=== PATIENT | male | born 1965 | race American Indian/Alaskan Native ===

== ENCOUNTER 2016-06-11 08:41 | Inpatient (IN) | payer OTHER ==
--- NOTE | 2016-06-11 13:27 | Emergency Department Report ---
ED Extremity Problem HPI - General Chief complaint: Extremity Problem,Nontraumatic Stated complaint: LEG PAIN Time Seen by Provider: 06/11/16 12:49 Source: patient Mode of arrival: Wheelchair Limitations: No Limitations - History of Present Illness Initial comments: 89-year-old male looks older than he presents comes in for complaint of pain in both legs. Complains of back pain when he coughs. Also he complains of swelling over his left anterior hip. He reports that the pain in both legs have been going on for 3-4 weeks pain in his left thigh with the swelling isn't going on for 2 weeks. He reports that the pain is constant and throbbing, reports he can't sit comfortably standing too long is painful as well. He does admit to having losing weight. He said he has not been followed by healthcare provider in a while. - Related Data Home Medications Medication Instructions Recorded Confirmed Last Taken No Known Home Medications [No 06/11/16 06/11/16 Unknown Reported Home Medications] Previous Rx's Medication Instructions Recorded Last Taken Type HYDROcodone/APAP 5-325 [[place] 1 each PO Q6H PRN #15 tablet 05/02/15 Unknown Rx 5/325] Levofloxacin [Levaquin TAB] 500 mg PO QDAY #10 tablet 05/02/15 Unknown Rx Nicotine [Habitrol] 7 mg TD QDAY #7 patch 05/02/15 Unknown Rx Allergies Allergy/AdvReac Type Severity Reaction Status Date / Time No Known Allergies Allergy Verified 06/14/15 07:26 ED Review of Systems ROS: Stated complaint: LEG PAIN Other details as noted in HPI ED Past Medical Hx - Past Medical History Hx Asthma: No Hx COPD: No - Surgical History Additional Surgical History: Dental extractions - Social History Smoking Status: Current Every Day Smoker Substance Use Type: None - Medications Home Medications: Home Medications Medication Instructions Recorded Confirmed Last Taken Type HYDROcodone/APAP 5-325 [[place] 1 each PO Q6H PRN #15 tablet 05/02/15 06/14/15 Unknown Rx 5/325] Levofloxacin [Levaquin TAB] 500 mg PO QDAY #10 tablet 05/02/15 06/14/15 Unknown Rx Nicotine [Habitrol] 7 mg TD QDAY #7 patch 05/02/15 06/14/15 Unknown Rx No Known Home Medications [No 06/11/16 06/11/16 Unknown History Reported Home Medications] ED Physical Exam - General Limitations: No Limitations ED Course Vital Signs 06/11/16 06/11/16 08:59 13:45 Temperature 98.0 F 98.3 F Pulse Rate 104 H 97 H Respiratory 22 16 Rate Blood Pressure 123/74 Blood Pressure 114/64 [Left] O2 Sat by Pulse 100 99 Oximetry ED Medical Decision Making - Lab Data Result diagrams: 06/11/16 14:31 06/11/16 13:53 - Medical Decision Making Patient been evaluated by this provider. Discussed with patient that we'll need to do a workup for his leg and lower back pain. As well as a workup on his weight loss. We ordered a CT of his abdomen and pelvis a chest x-ray to rule out tuberculosis. Ordered CBC BNP magnesium, IV fluids. Results of CBC noticed the patient was anemic H&H was 6.1 and 17.1. Therefore this provider with direction from ordered 2 units of pack red blood cells, and Benadryl IV, acetaminophen 650 mg. Patient will be admitted for CT results to give a report to did discuss with regarding giving this patient morphine 4 mg IV based on preliminary CT results. Report given to admitting provider. Critical care attestation.: If time is entered above; I have spent that time in minutes in the direct care of this critically ill patient, excluding procedure time.
[2016-06-11 14:21] LABS: Anion Gap 12 mmol/L; BUN/Creatinine Ratio 8.46; Blood Urea Nitrogen 11 mg/dL (9-20); Calcium 9.6 mg/dL (8.4-10.2); Carbon Dioxide 25 mmol/L (22-30); Chloride 90.9 mmol/L (98-107); Glucose 91 mg/dL (75-100); Potassium 3.7 mmol/L (3.6-5.0); Sodium 124 mmol/L (137-145)
--- NOTE | 2016-06-11 14:46 | XRay Report ---
CHEST XRAY, 2 VIEWS: History: Cough, evaluate for tuberculosis. Findings: There is mild diffuse interstitial coarsening. The lungs are otherwise clear but hyperexpanded. The pleural spaces are clear. The cardiac silhouette and pulmonary vasculature are within normal limits for technique. No findings to suggest primary or reactive tuberculosis. IMPRESSION: Changes consistent with COPD. No evidence for an acute process.
[2016-06-11 15:08] LABS: Red Blood Count 1.82 M/mm3 (3.65-5.03); White Blood Count 8.2 K/mm3 (4.5-11.0)
[2016-06-11 15:09] LABS: Hemoglobin 6.1 gm/dl (11.8-15.2); Mean Corpuscular HGB Conc 36 % (32-34); Mean Corpuscular Hemoglobin 34 pg (28-32); Mean Corpuscular Volume 94 fl (84-94); Platelet Count 116 K/mm3 (140-440)
[2016-06-11 15:11] LABS: Hematocrit 17.1 % (35.5-45.6)
[2016-06-11] MEDS ORDERED: NACL 0.9% 500 ML 500 ML IV ONE (15:24)
[2016-06-11] MEDS ORDERED: TYLENOL PO ONE (15:24)
[2016-06-11 15:33] LABS: Bilirubin,Urine NEG (Negative); Blood,Urine SM (Negative); Ketones,Urine NEG (Negative); Leukocyte Esterase,Urine NEG (Negative); Nitrite,Urine NEG (Negative); Protein,Urine <15 mg/dL mg/dL (Negative); Sperm,Urine 1+ /HPF (NP)
[2016-06-11] MEDS ORDERED: MORPHINE IV ONE ×2 (17:41→20:17)
[2016-06-11] MEDS ORDERED: NACL 0.9% 500 ML 500 ML ONE (17:42)
--- NOTE | 2016-06-11 17:46 | Cat Scan Report ---
FINAL REPORT EXAM: CT ABDOMEN PELVIS WO CON HISTORY: pain with weigh loss and mass on hip TECHNIQUE: CT examination of the ABDOMEN without contrast CT exanimation of the PELVIS without contrast PRIORS: 04/30/2015 FINDINGS: Slight linear scar versus atelectasis in both lower lobes. There is a lytic expansile mass in the anterior aspect of the left iliac wing extending from the acetabulum to the left iliac crest. It is marginated by discontinuous rim calcification. There is suggestion of this calcified rim circumscribed a large soft tissue mass with maximum dimension of 10.7 cm. A lytic expansile lesion is also noted in the right anterior iliac wing with suggestion of associated soft tissue mass measuring 3.8 cm. Additional multifocal lytic lesions are noted in the proximal right femur, proximal left femur, bilateral inferior pubic ramus, left pubis, right acetabulum, medial left acetabulum, medial iliac wing bilaterally, and left mid sacrum. Lytic foci are also noted in the left L3 and L5 pedicles and spinous process of L2. Lytic focus with slight expansile remodeling is noted in the posterior left 11th rib and right 11th rib possibly with small pathologic fracture on the right. Pericardial thickening in the visualized portion the heart is suggestive of new effusion. Normal noncontrast appearance of the liver, gallbladder, adrenals, and spleen. The exam is limited from a paucity of natural intra-abdominal fat, and lack of contrast, to separate adjacent organs and structures. The ureters are largely obscured by adjacent soft tissues. Intestinal loops are also difficult to visualize separately. The pancreas is not well visualized. It is also difficult to exclude retroperitoneal adenopathy. Normal caliber abdominal aorta with slight calcified atherosclerotic plaque. Normal caliber IVC. No definite renal abnormality. No definite hydronephrosis or renal calculus. No definite evidence of renal mass. Normal-appearing discernible portion of stomach. Scattered prominence of intestinal gas throughout the colon and small bowel of the abdomen and pelvis may reflect paralytic ileus. No gross intestinal distention. Nonspecific slight pelvic free fluid. Normal-appearing urinary bladder and rectum. Prostate and seminal vesicles not well visualized. Intestinal mural thickening or masses not excludable since joyce are obscured by adjacent structures. No gross intestinal distention. Appendix not visualized. IMPRESSION: Lack of anatomic fat and contrast limit the examination, especially intestinal, pancreatic, and ureteral evaluation Multiple bone lesions highly suspicious for metastatic disease, possibly prostate or osseous cancer. Consider also lytic phase of Paget's disease with sarcomatous degeneration. Largest lytic process with soft tissue mass is in the left anterior pelvis Pericardial thickening may reflect pericardial effusion Nonspecific slight free fluid in the pelvis may be reactive or neoplastic
[2016-06-11] MEDS ORDERED: FLUSH HEPARIN IV ONE (18:36)
[2016-06-11 18:59] LABS: Alanine Aminotransferase 11 units/L (7-56); Alkaline Phosphatase 43 units/L (35-129)
[2016-06-11 19:01] LABS: Bilirubin,Direct < 0.2 mg/dL (0-0.2)
[2016-06-11 19:06] LABS: Bilirubin,Indirect 0.8 mg/dL
[2016-06-11 19:15] LABS: Albumin/Globulin Ratio 0.3 %; Total Protein 14.8 g/dL (6.3-8.2)
[2016-06-11 19:36] LABS: Hematocrit 20.8 % (35.5-45.6); Hemoglobin 7.3 gm/dl (11.8-15.2); Mean Corpuscular HGB Conc 35 % (32-34); Mean Corpuscular Hemoglobin 33 pg (28-32); Mean Corpuscular Volume 95 fl (84-94); Red Cell Distribution Width 16.2 % (13.2-15.2); White Blood Count 7.8 K/mm3 (4.5-11.0)
[2016-06-11 19:39] LABS: Platelet Count 99 K/mm3 (140-440)
[2016-06-11 20:55] LABS: Anisocytosis 1+; Basophils % (Manual) 0 % (0.0-1.8); Blastocytes % (Manual) 0 %; Eosinophils % (Manual) 0 % (0.0-4.3)
[2016-06-11 20:56] LABS: Diff Status Complete; Hypochromasia Rare; Platelet Estimate Appears Increased; Target Cells Rare
--- NOTE | 2016-06-11 20:56 | Event Note ---
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
[2016-06-11] MEDS ORDERED: MILK OF MAGNESIA PO PRN (20:58)
[2016-06-11] MEDS ORDERED: DULCOLAX PR PRN (20:58)
[2016-06-11] MEDS ORDERED: ZOFRAN IV PRN (20:58)
--- NOTE | 2016-06-11 22:15 | History and Physical Report ---
CHIEF COMPLAINT: Left hip and left iliac pain for a couple of weeks. HISTORY OF PRESENT ILLNESS: A 50-year-old [place] male, who looks older than his age, disheveled, comes in for pain, left hip and left iliac region with a mass in the left iliac region. There was swelling of the left iliac region for the last 4-5 weeks, hard mass present. Also, pain in both the legs going on for 3 to 4 weeks. The pain is about 7 to 8 on a scale of 1 to 10. Also, lower back pain with radiation to both legs. The pain is sharp, constant and throbbing. Cannot sit comfortably. Walking is also very painful. Also, the patient admits to losing weight, must have lost about 40 to 50 pounds in the last 3 to 4 months. He did not seek any medical attention. PAST MEDICAL HISTORY: No hypertension, no diabetes. Does not take any medications. PAST SURGICAL HISTORY: Dental extractions. SOCIAL HISTORY: Smokes about a pack a day. FAMILY HISTORY: Significant for hypertension. CURRENT MEDICATIONS: [place] 5/325 q.6 h. p.r.n. and Levaquin 500 daily given by his physician. The patient is not able to name the physician. The patient has been having poor appetite, losing weight. REVIEW OF SYSTEMS: Significant for poor appetite. Losing weight. Difficulty walking Low back pain. Radiation of pain to both the legs. Also, has some difficulty in urinating. Shortness of breath on exertion present. Otherwise, review of systems negative. A 14-point review of systems was done. The patient has swelling on the left hip and iliac region. Solid mass, 10 cm x 10 cm. PHYSICAL EXAMINATION: GENERAL: Middle-aged male, looks older than his age. Disheveled. VITAL SIGNS: Temperature is 98.0, pulse is 104, respirations 22, blood pressure is 123/74, and sats 100%. HEENT: Pale mucous membranes. NECK: Supple, no lymphadenopathy, no thyromegaly. LUNGS: Clear to auscultation and percussion. Good air entry. CARDIOVASCULAR: S1, S2 heard. No gallop, no murmur, no rub. Apical impulse in left fifth intercostal space and midclavicular line. ABDOMEN: Soft and benign. Bowel sounds are normal. Hernial orifices are normal. EXTREMITIES: Left iliac region hard solid mass present, 10 cm x 10 cm, firm. Extremities, otherwise range of motion is normal, slightly painful. CENTRAL NERVOUS SYSTEM: Alert and oriented x 4, nonfocal exam. LABORATORY DATA: White count is 8200, hemoglobin is 6.1 g, hematocrit is 17.1, and platelet count is 111,000. A repeat hemoglobin was 7.3 g. Sodium is 124, low. His potassium is 3.7, chloride is 90.9, bicarbonate is 25, BUN and creatinine are 11 and 1.3. Total protein is 14.8, albumin is 3.0. Magnesium is 1.5. Urine protein is less than 15. Urine WBC is 6.0. Chest x-ray is consistent with COPD. No evidence for acute process. CT of her abdomen and pelvis shows lytic expansile mass in the anterior aspect of the left iliac ring extending from the acetabulum to the left iliac crest. Discontinuous rim calcification. There is suggestion of this calcified rim. Soft tissue mass has maximum dimension of 10.7 cm. Lytic expansile lesion is also noted in the right anterior iliac ring with suggestion of soft tissue mass measuring 3.8 cm. IMPRESSION: Lack of contrast -- limited examination. Multiple bony lesions highly suspicious for metastatic disease. Possibly prostate or osseous cancer. Consider also lytic phase of Paget disease with sarcomatous degeneration. The largest lytic process with soft tissue mass is in the left anterior pelvis. Pericardial thickening may reflect pericardial effusion. Nonspecific slight free fluid in the pelvis, may be reactive or neoplastic. ASSESSMENT AND PLAN: 1. Severe anemia. Probably secondary to metastatic disease. We will transfuse 2 units of packed red blood cells. 2. Hyponatremia. The patient needs IV fluids. The patient to be given D5 normal saline. Sodium is 124. We will get urine electrolytes. 3. Prostate cancer with metastasis. Possible prostate cancer. We will get a bone biopsy. 4. Rule out multiple myeloma. The patient has total protein of 14.8 and albumin is 3.0, possible multiple myeloma. We will get Oncology consult. 5. Deep venous thrombosis prophylaxis, Lovenox 40 mg subcutaneous daily. 6. Pain management, Dilaudid 1 mg q.3 h. and Zofran 4 mg q. 3 h. p.r.n. PROGNOSIS: Fair to poor. JOB# [id number] [facility]
[2016-06-11] MEDS ORDERED: LOVENOX SUB-Q ONE (23:16)
[2016-06-11] MEDS: LOVENOX SUB-Q SCH (23:29)
[2016-06-12] MEDS ORDERED: DILAUDID ONE (00:15)
[2016-06-12] MEDS: DILAUDID IV PRN ×5 (00:18→20:26)
[2016-06-12] MEDS: D5NS 1,000 ML IV SCH (03:34)
[2016-06-12 08:27] LABS: Hematocrit 21.7 % (35.5-45.6); Hemoglobin 7.7 gm/dl (11.8-15.2); Mean Corpuscular HGB Conc 35 % (32-34); Mean Corpuscular Hemoglobin 33 pg (28-32); Mean Corpuscular Volume 93 fl (84-94); Red Blood Count 2.34 M/mm3 (3.65-5.03); Red Cell Distribution Width 16.2 % (13.2-15.2)
[2016-06-12 08:33] LABS: Platelet Count 89 K/mm3 (140-440)
--- NOTE | 2016-06-12 08:48 | Progress Note ---
Assessment and Plan Assessment and plan: Metastatic cancer likely from prostate or osseous origin - Oncology consult is placed - Left inguinal mass biopsy Severe anemia likely from malignancy - Patient transfused with packed red blood cells - Hemoglobin this morning is 7.3 - We will monitor closely Hyponatremia - Likely from malignancy - He has chronic hyponatremia Prophylaxis - SCD because of anemia History Interval history: No new complaints, no nursing issues overnight. Hospitalist Physical - Physical exam Narrative exam: Not in cardiopulmonary distress. The patient appeared well nourished and normally developed. Vital signs as documented. Head exam is unremarkable. No scleral icterus . Neck is without jugular venous distension, thyromegaly, or carotid bruits. Lungs are clear to auscultation. Cardiac exam reveals regular rate and Rhythm. First and second heart sounds normal. No murmurs, rubs or gallops. Abdominal exam reveals normal bowel sounds, no masses, no organomegaly and no aortic enlargement. Extremities are nonedematous and both femoral and pedal pulses are normal. BLOOD BANK COORDINATOR: Alert and oriented 3. No focal weakness. - Constitutional Vitals: Temp Pulse Resp BP Pulse Ox 98.7 F 66 18 112/56 100 06/12/16 08:03 06/12/16 08:03 06/12/16 08:03 06/12/16 08:03 06/12/16 08:03 Results - Labs CBC & Chem 7: 06/12/16 08:09 06/11/16 13:53 Labs: Laboratory Last Values WBC 6.0 K/mm3 (4.5-11.0) 06/12/16 08:09 RBC 2.34 M/mm3 (3.65-5.03) L 06/12/16 08:09 Hgb 7.7 gm/dl (11.8-15.2) L 06/12/16 08:09 Hct 21.7 % (35.5-45.6) L 06/12/16 08:09 MCV 93 fl (84-94) 06/12/16 08:09 MCH 33 pg (28-32) H 06/12/16 08:09 MCHC 35 % (32-34) H 06/12/16 08:09 RDW 16.2 % (13.2-15.2) H 06/12/16 08:09 Plt Count 89 K/mm3 (140-440) L 06/12/16 08:09 [place] % (Auto) Waiter/Waitress Buffet 06/12/16 08:09 Add Manual Diff Complete 06/11/16 19:21 Total Counted 100 06/11/16 19:21 Seg Neuts % (Manual) 36.0 % (40.0-70.0) L 06/11/16 19:21 Band Neutrophils % 6.0 % 06/11/16 19:21 Lymphocytes % (Manual) 38.0 % (13.4-35.0) H 06/11/16 19:21 Reactive Lymphs % (Man) 0 % 06/11/16 19:21 Monocytes % (Manual) 20.0 % (0.0-7.3) H 06/11/16 19:21 Eosinophils % (Manual) 0 % (0.0-4.3) 06/11/16 19:21 Basophils % (Manual) 0 % (0.0-1.8) 06/11/16 19:21 Metamyelocytes % 0 % 06/11/16 19:21 Myelocytes % 0 % 06/11/16 19:21 Promyelocytes % 0 % 06/11/16 19:21 Blast Cells % 0 % 06/11/16 19:21 Nucleated RBC % Not Reportable 06/11/16 19:21 Seg Neutrophils # Man 2.8 K/mm3 (1.8-7.7) 06/11/16 19:21 Band Neutrophils # 0.5 K/mm3 06/11/16 19:21 Lymphocytes # (Manual) 3.0 K/mm3 (1.2-5.4) 06/11/16 19:21 Abs React Lymphs (Man) 0.0 K/mm3 06/11/16 19:21 Monocytes # (Manual) 1.6 K/mm3 (0.0-0.8) H 06/11/16 19:21 Eosinophils # (Manual) 0.0 K/mm3 (0.0-0.4) 06/11/16 19:21 Basophils # (Manual) 0.0 K/mm3 (0.0-0.1) 06/11/16 19:21 Metamyelocytes # 0.0 K/mm3 06/11/16 19:21 Myelocytes # 0.0 K/mm3 06/11/16 19:21 Promyelocytes # 0.0 K/mm3 06/11/16 19:21 Blast Cells # 0.0 K/mm3 06/11/16 19:21 WBC Morphology Not Reportable 06/11/16 19:21 Hypersegmented Neuts Not Reportable 06/11/16 19:21 Hyposegmented Neuts Not Reportable 06/11/16 19:21 Hypogranular Neuts Not Reportable 06/11/16 19:21 Smudge Cells Not Reportable 06/11/16 19:21 Toxic Granulation Not Reportable 06/11/16 19:21 Toxic Vacuolation Not Reportable 06/11/16 19:21 Dohle Bodies Not Reportable 06/11/16 19:21 Pelger-Huet Anomaly Not Reportable 06/11/16 19:21 David Rods Not Reportable 06/11/16 19:21 Platelet Estimate Appears increased 06/11/16 19:21 Clumped Platelets Not Reportable 06/11/16 19:21 Plt Clumps, EDTA Not Reportable 06/11/16 19:21 Large Platelets Not Reportable 06/11/16 19:21 Giant Platelets Not Reportable 06/11/16 19:21 Platelet Satelliting Not Reportable 06/11/16 19:21 Plt Morphology Comment Not Reportable 06/11/16 19:21 RBC Morphology Not Reportable 06/11/16 19:21 Dimorphic RBCs Not Reportable 06/11/16 19:21 Polychromasia Not Reportable 06/11/16 19:21 Hypochromasia Rare 06/11/16 19:21 Poikilocytosis Not Reportable 06/11/16 19:21 Anisocytosis 1+ 06/11/16 19:21 Microcytosis Not Reportable 06/11/16 19:21 Macrocytosis Not Reportable 06/11/16 19:21 Spherocytes Not Reportable 06/11/16 19:21 Pappenheimer Bodies Not Reportable 06/11/16 19:21 Sickle Cells Not Reportable 06/11/16 19:21 Target Cells Rare 06/11/16 19:21 Tear Drop Cells Not Reportable 06/11/16 19:21 Ovalocytes Not Reportable 06/11/16 19:21 Helmet Cells Not Reportable 06/11/16 19:21 [place] Bodies Not Reportable 06/11/16 19:21 [place] Rings Not Reportable 06/11/16 19:21 Blunt Cells Not Reportable 06/11/16 19:21 Bite Cells Not Reportable 06/11/16 19:21 Crenated Cell Not Reportable 06/11/16 19:21 Elliptocytes Not Reportable 06/11/16 19:21 Acanthocytes (Spur) Not Reportable 06/11/16 19:21 Rouleaux Not Reportable 06/11/16 19:21 Hemoglobin C Crystals Not Reportable 06/11/16 19:21 Schistocytes Not Reportable 06/11/16 19:21 Malaria parasites Not Reportable 06/11/16 19:21 Daryl Bodies Not Reportable 06/11/16 19:21 Hem Pathologist Commnt No 06/11/16 19:21 Sodium 124 mmol/L (137-145) L 06/11/16 13:53 Potassium 3.7 mmol/L (3.6-5.0) 06/11/16 13:53 Chloride 90.9 mmol/L (98-107) L 06/11/16 13:53 Carbon Dioxide 25 mmol/L (22-30) 06/11/16 13:53 Anion Gap 12 mmol/L 06/11/16 13:53 BUN 11 mg/dL (9-20) 06/11/16 13:53 Creatinine 1.3 mg/dL (0.8-1.5) 06/11/16 13:53 Estimated GFR > 60 ml/min 06/11/16 13:53 BUN/Creatinine Ratio 8.46 % 06/11/16 13:53 Glucose 91 mg/dL (75-100) 06/11/16 13:53 Calcium 9.6 mg/dL (8.4-10.2) 06/11/16 13:53 Magnesium 1.5 mg/dL (1.7-2.3) L 06/11/16 13:53 Total Bilirubin 1.0 mg/dL (0.1-1.2) 06/11/16 13:53 Direct Bilirubin < 0.2 mg/dL (0-0.2) 06/11/16 13:53 Indirect Bilirubin 0.8 mg/dL 06/11/16 13:53 AST 30 units/L (5-40) 06/11/16 13:53 ALT 11 units/L (7-56) 06/11/16 13:53 Alkaline Phosphatase 43 units/L (35-129) 06/11/16 13:53 Total Protein 14.8 g/dL (6.3-8.2) H 06/11/16 13:53 Albumin 3.0 g/dL (3.9-5) L 06/11/16 13:53 Albumin/Globulin Ratio 0.3 % 06/11/16 13:53 Urine Color Yellow (Yellow) 06/11/16 14:42 Urine Turbidity Clear (Clear) 06/11/16 14:42 Urine pH 7.0 (5.0-7.0) 06/11/16 14:42 Ur Specific [place] 1.008 (1.003-1.030) 06/11/16 14:42 Urine Protein <15 mg/dl mg/dL (Negative) 06/11/16 14:42 Urine Glucose (UA) Neg mg/dL (Negative) 06/11/16 14:42 Urine Ketones Neg mg/dL (Negative) 06/11/16 14:42 Urine Blood Sm (Negative) 06/11/16 14:42 Urine Nitrite Neg (Negative) 06/11/16 14:42 Urine Bilirubin Neg (Negative) 06/11/16 14:42 Urine Urobilinogen 4.0 mg/dL (<2.0) 06/11/16 14:42 Ur Leukocyte Esterase Neg (Negative) 06/11/16 14:42 Urine WBC (Auto) 4.0 /HPF (0.0-6.0) 06/11/16 14:42 Urine RBC (Auto) 6.0 /HPF (0.0-6.0) 06/11/16 14:42 U Epithel Cells (Auto) < 1.0 /HPF (0-13.0) 06/11/16 14:42 Urine Sperm 1+ /HPF (COAL TOWER OPERATOR) 06/11/16 14:42 Blood Type O POSITIVE 06/11/16 15:58 Antibody Screen Negative 06/11/16 15:58 Crossmatch See Detail 06/11/16 15:58
[2016-06-12 09:00] LABS: Alanine Aminotransferase 8 units/L (7-56); Albumin 2.7 g/dL (3.9-5); Albumin/Globulin Ratio 0.3 %; Alkaline Phosphatase 42 units/L (35-129); Anion Gap 8 mmol/L; BUN/Creatinine Ratio 9.16; Bilirubin,Total 1.1 mg/dL (0.1-1.2); Blood Urea Nitrogen 11 mg/dL (9-20); Calcium 9.1 mg/dL (8.4-10.2); Carbon Dioxide 27 mmol/L (22-30); Chloride 96.1 mmol/L (98-107); Glucose 88 mg/dL (75-100); Potassium 3.7 mmol/L (3.6-5.0); Sodium 127 mmol/L (137-145)
[2016-06-12 09:23] LABS: Anisocytosis 1+; Basophils % (Manual) 0 % (0.0-1.8); Blastocytes % (Manual) 0 %
[2016-06-12 09:24] LABS: Diff Status Complete; Hypochromasia Rare; Platelet Estimate Appears Decreased; Target Cells Few
[2016-06-12] MEDS: LOVENOX SUB-Q SCH (10:02)
[2016-06-12 10:55] LABS: Phosphorous 5.5 mg/dL (2.5-4.5); Uric Acid 8.6 mg/dL (3.5-7.6)
--- NOTE | 2016-06-12 14:23 | Hem/Onc Consultation ---
History of Present Illness - Reason for Consult Consult date: 06/12/16 metastatic cancer - History of Present Illness 50 year old man with lt hip and leg pain for unclear period of time, at least few months. Pt reports that he started limping more than a year ago. comes in with weakness also and is found to have severe anemia and a mass in the iliac bone are with CT scan showing multiple bone lesions. Many lesions are lytic and there are 2 soft tissue masses in the pelvic areas. Pt reports some wt loss but cannot specify how many lbs. Energy is low. No headaches. No change in bowel movement. Never had a colonoscopy Past History Past Medical History: No medical history Social history: smoking, alcohol abuse (patient admits to heavy alcohol abuse. he reports he quit 21 days ago.) Medications and Allergies Allergies Allergy/AdvReac Type Severity Reaction Status Date / Time No Known Allergies Allergy Verified 06/14/15 07:26 Home Medications Medication Instructions Recorded Confirmed Last Taken Type HYDROcodone/APAP 5-325 [[place] 1 each PO Q6H PRN #15 tablet 05/02/15 06/14/15 Unknown Rx 5/325] Levofloxacin [Levaquin TAB] 500 mg PO QDAY #10 tablet 05/02/15 06/14/15 Unknown Rx Nicotine [Habitrol] 7 mg TD QDAY #7 patch 05/02/15 06/14/15 Unknown Rx No Known Home Medications [No 06/11/16 06/11/16 Unknown History Reported Home Medications] Active Meds: Active Medications Acetaminophen (Tylenol) 650 mg PO Q4H PRN PRN Reason: Pain MILD(1-3)/Fever >100.5/THOMAS Bisacodyl (Dulcolax) 10 mg VT QDAY PRN PRN Reason: Constipation unrelieved by MOM Enoxaparin Sodium (Lovenox) 40 mg SUB-Q QDAY BENY Last Admin: 06/12/16 10:02 Dose: 40 mg Hydromorphone HCl (Dilaudid) 1 mg IV Q3H PRN PRN Reason: Pain , Severe (7-10) Last Admin: 06/12/16 11:13 Dose: 1 mg Dextrose/Sodium Chloride (D5ns) 1,000 mls @ 75 mls/hr IV DIRECT BENY Last Admin: 06/12/16 03:34 Dose: 75 mls/hr Magnesium Hydroxide (Milk Of Magnesia) 30 ml PO Q4H PRN PRN Reason: Constipation Ondansetron HCl (Zofran) 4 mg IV Q3H PRN PRN Reason: N/V unrelieved by Reglan Review of Systems Constitutional: weight loss (as above), fatigue Exam - Constitutional Vitals: Last Vital Signs Temp 98.7 F 06/12/16 08:03 Pulse 66 06/12/16 08:03 Resp 18 06/12/16 08:03 BP 112/56 06/12/16 08:03 Pulse Ox 100 06/12/16 08:03 Pain Intensity (0-10): 7 General appearance: no acute distress Performance status: 1-light work, ambulatory - EENT Eyes: PERRL - Neck Neck: supple, normal ROM - Respiratory Respiratory effort: Positive: normal Respiratory: bilateral: CTA - Cardiovascular Rhythm: regular Heart Sounds: Present: S1 & S2 - Gastrointestinal General gastrointestinal: Present: soft, non-tender, other (mass felt in the lt lower quadrant abutting the anterior iliac wing) - Integumentary Integumentary: clear, warm - Musculoskeletal Musculoskeletal: left sided weakness (and pain with decreased range of motion) - Psychiatric Psychiatric: appropriate mood/affect Results - Labs lab Results: Laboratory Results - last 24 hr 06/12/16 06/12/16 06/12/16 08:09 08:09 08:09 WBC 6.0 RBC 2.34 L Hgb 7.7 L Hct 21.7 L MCV 93 MCH 33 H MCHC 35 H RDW 16.2 H Plt Count 89 L Christian % (Auto) Book Coverer Add Manual Diff Complete Total Counted 100 Seg Neuts % (Manual) 36.0 L Band Neutrophils % 0 Lymphocytes % (Manual) 50.0 H Reactive Lymphs % (Man) 0 Monocytes % (Manual) 13.0 H Eosinophils % (Manual) 1.0 Basophils % (Manual) 0 Metamyelocytes % 0 Myelocytes % 0 Promyelocytes % 0 Blast Cells % 0 Nucleated RBC % Not Reportable Seg Neutrophils # Man 2.2 Band Neutrophils # 0.0 Lymphocytes # (Manual) 3.0 Abs React Lymphs (Man) 0.0 Monocytes # (Manual) 0.8 Eosinophils # (Manual) 0.1 Basophils # (Manual) 0.0 Metamyelocytes # 0.0 Myelocytes # 0.0 Promyelocytes # 0.0 Blast Cells # 0.0 WBC Morphology Not Reportable Hypersegmented Neuts Not Reportable Hyposegmented Neuts Not Reportable Hypogranular Neuts Not Reportable Smudge Cells Not Reportable Toxic Granulation Not Reportable Toxic Vacuolation Not Reportable Dohle Bodies Not Reportable Pelger-Huet Anomaly Not Reportable David Rods Not Reportable Platelet Estimate Appears decreased Clumped Platelets Not Reportable Plt Clumps, EDTA Not Reportable Large Platelets Not Reportable Giant Platelets Not Reportable Platelet Satelliting Not Reportable Plt Morphology Comment Not Reportable RBC Morphology Not Reportable Dimorphic RBCs Not Reportable Polychromasia Not Reportable Hypochromasia Rare Poikilocytosis Not Reportable Anisocytosis 1+ Microcytosis Not Reportable Macrocytosis Not Reportable Spherocytes Not Reportable Pappenheimer Bodies Not Reportable Sickle Cells Not Reportable Target Cells Few Tear Drop Cells Not Reportable Ovalocytes Not Reportable Helmet Cells Not Reportable [place] Bodies Not Reportable [place] Rings Not Reportable Barbi Cells Not Reportable Bite Cells Not Reportable Crenated Cell Not Reportable Elliptocytes Not Reportable Acanthocytes (Spur) Not Reportable Rouleaux Not Reportable Hemoglobin C Crystals Not Reportable Schistocytes Not Reportable Malaria parasites Not Reportable Daryl Bodies Not Reportable Hem Pathologist Commnt No Sodium 127 L Potassium 3.7 Chloride 96.1 L Carbon Dioxide 27 Anion Gap 8 BUN 11 Creatinine 1.2 Estimated GFR > 60 BUN/Creatinine Ratio 9.16 Glucose 88 Uric Acid 8.6 H Calcium 9.1 Phosphorus 5.5 H Total Bilirubin 1.1 AST 24 ALT 8 Alkaline Phosphatase 42 Total Protein 12.0 H Albumin 2.7 L Albumin/Globulin Ratio 0.3 - Imaging and cardiology Chest x-ray: report reviewed CT scan - abdomen: report reviewed Assessment and Plan 1- anemia with lytic bone lesions and soft tissue masses possible arising from the bone. This is concerning for multiple myeloma. agreee with the bx of the soft tissue mass. will order SPEP and SIEP and PSA. will also order bone survey. Patient has been transfuse. will order Ferritin, B12 and folic acid level. Patient may need a Bone marrow bx. Dr. Vasquez will follow up on Tuesday.
[2016-06-12 15:12] LABS: Reticulocyte % 1.85 % (0.78-2.58)
[2016-06-13] MEDS: DILAUDID IV PRN ×4 (00:12→22:03)
[2016-06-13 08:11] LABS: Hematocrit 23.3 % (35.5-45.6); Hemoglobin 8.1 gm/dl (11.8-15.2); Mean Corpuscular HGB Conc 35 % (32-34); Mean Corpuscular Hemoglobin 33 pg (28-32); Mean Corpuscular Volume 94 fl (84-94); Red Blood Count 2.49 M/mm3 (3.65-5.03); Red Cell Distribution Width 16.4 % (13.2-15.2); White Blood Count 6.2 K/mm3 (4.5-11.0)
[2016-06-13 08:28] LABS: Platelet Count 94 K/mm3 (140-440)
[2016-06-13 08:31] LABS: Alanine Aminotransferase 9 units/L (7-56); Albumin 2.7 g/dL (3.9-5); Alkaline Phosphatase 39 units/L (35-129)
[2016-06-13 08:40] LABS: Albumin/Globulin Ratio 0.2 %; Bilirubin,Direct < 0.2 mg/dL (0-0.2); Bilirubin,Indirect 0.8 mg/dL; Total Protein 13.6 g/dL (6.3-8.2)
--- NOTE | 2016-06-13 09:46 | XRay Report ---
METASTATIC SURVEY:06/12/16 CLINICAL: Lytic bone lesions on CT. FINDINGS: Lateral skull: Negative Cervical spine: Negative Thoracic spine: Negative Lumbar spine: Negative Chest and ribs: Negative Bilateral humerus: Negative Pelvis and hips: A large lytic lesion with partial destruction of the left iliac bone correlates with a [address] In addition, numerous bilateral lytic lesions in the bony pelvis and hips. Bilateral femur: Both proximal femurs have a moth-eaten appearance with numerous tiny lytic lesions in the subtrochanteric area. The largest femoral lesion is in the left proximal femur several centimeters distal to the lesser trochanter. IMPRESSION: Lytic lesions of the bony pelvis, hips and femurs. The rest of the skeleton is negative.
--- NOTE | 2016-06-13 09:56 | Progress Note ---
Assessment and Plan Assessment and plan: Metastatic cancer likely from prostate or osseous origin - Oncology consult appreciated - Left inguinal mass biopsy Severe anemia likely from malignancy - Patient transfused with packed red blood cells - Hemoglobin this morning is 8.1 - We will monitor closely Hyponatremia - Likely from malignancy - He has chronic hyponatremia Severe malnutrition - Dietary consult Prophylaxis - On Lovenox History Interval history: Complains pain, on Dilaudid Hospitalist Physical - Physical exam Narrative exam: Not in cardiopulmonary distress. The patient appeared malnourished and emaciated. Vital signs as documented. Head exam is unremarkable. No scleral icterus . Neck is without jugular venous distension, thyromegaly, or carotid bruits. Lungs are clear to auscultation. Cardiac exam reveals regular rate and Rhythm. First and second heart sounds normal. No murmurs, rubs or gallops. Abdominal exam reveals normal bowel sounds, no masses, no organomegaly and no aortic enlargement. Extremities are nonedematous and both femoral and pedal pulses are normal. TRADING FLOOR OPERATOR: Alert and oriented 3. No focal weakness. - Constitutional Vitals: Temp Pulse Resp BP Pulse Ox 98.2 F 77 14 108/64 99 06/13/16 07:57 06/13/16 07:57 06/13/16 07:57 06/13/16 07:57 06/13/16 07:57 Results - Labs CBC & Chem 7: 06/13/16 07:29 06/12/16 08:09 Labs: Laboratory Last Values WBC 6.2 K/mm3 (4.5-11.0) 06/13/16 07:29 RBC 2.49 M/mm3 (3.65-5.03) L 06/13/16 07:29 Hgb 8.1 gm/dl (11.8-15.2) L 06/13/16 07:29 Hct 23.3 % (35.5-45.6) L 06/13/16 07:29 MCV 94 fl (84-94) 06/13/16 07:29 MCH 33 pg (28-32) H 06/13/16 07:29 MCHC 35 % (32-34) H 06/13/16 07:29 RDW 16.4 % (13.2-15.2) H 06/13/16 07:29 Plt Count 94 K/mm3 (140-440) L 06/13/16 07:29 [place] % (Auto) Marbleizing Machine Tender 06/12/16 08:09 Add Manual Diff Complete 06/12/16 08:09 Total Counted 100 06/12/16 08:09 Seg Neuts % (Manual) 36.0 % (40.0-70.0) L 06/12/16 08:09 Band Neutrophils % 0 % 06/12/16 08:09 Lymphocytes % (Manual) 50.0 % (13.4-35.0) H 06/12/16 08:09 Reactive Lymphs % (Man) 0 % 06/12/16 08:09 Monocytes % (Manual) 13.0 % (0.0-7.3) H 06/12/16 08:09 Eosinophils % (Manual) 1.0 % (0.0-4.3) 06/12/16 08:09 Basophils % (Manual) 0 % (0.0-1.8) 06/12/16 08:09 Metamyelocytes % 0 % 06/12/16 08:09 Myelocytes % 0 % 06/12/16 08:09 Promyelocytes % 0 % 06/12/16 08:09 Blast Cells % 0 % 06/12/16 08:09 Nucleated RBC % Not Reportable 06/12/16 08:09 Seg Neutrophils # Man 2.2 K/mm3 (1.8-7.7) 06/12/16 08:09 Band Neutrophils # 0.0 K/mm3 06/12/16 08:09 Lymphocytes # (Manual) 3.0 K/mm3 (1.2-5.4) 06/12/16 08:09 Abs React Lymphs (Man) 0.0 K/mm3 06/12/16 08:09 Monocytes # (Manual) 0.8 K/mm3 (0.0-0.8) 06/12/16 08:09 Eosinophils # (Manual) 0.1 K/mm3 (0.0-0.4) 06/12/16 08:09 Basophils # (Manual) 0.0 K/mm3 (0.0-0.1) 06/12/16 08:09 Metamyelocytes # 0.0 K/mm3 06/12/16 08:09 Myelocytes # 0.0 K/mm3 06/12/16 08:09 Promyelocytes # 0.0 K/mm3 06/12/16 08:09 Blast Cells # 0.0 K/mm3 06/12/16 08:09 WBC Morphology Not Reportable 06/12/16 08:09 Hypersegmented Neuts Not Reportable 06/12/16 08:09 Hyposegmented Neuts Not Reportable 06/12/16 08:09 Hypogranular Neuts Not Reportable 06/12/16 08:09 Smudge Cells Not Reportable 06/12/16 08:09 Toxic Granulation Not Reportable 06/12/16 08:09 Toxic Vacuolation Not Reportable 06/12/16 08:09 Dohle Bodies Not Reportable 06/12/16 08:09 Pelger-Huet Anomaly Not Reportable 06/12/16 08:09 David Rods Not Reportable 06/12/16 08:09 Platelet Estimate Appears decreased 06/12/16 08:09 Clumped Platelets Not Reportable 06/12/16 08:09 Plt Clumps, EDTA Not Reportable 06/12/16 08:09 Large Platelets Not Reportable 06/12/16 08:09 Giant Platelets Not Reportable 06/12/16 08:09 Platelet Satelliting Not Reportable 06/12/16 08:09 Plt Morphology Comment Not Reportable 06/12/16 08:09 RBC Morphology Not Reportable 06/12/16 08:09 Dimorphic RBCs Not Reportable 06/12/16 08:09 Polychromasia Not Reportable 06/12/16 08:09 Hypochromasia Rare 06/12/16 08:09 Poikilocytosis Not Reportable 06/12/16 08:09 Anisocytosis 1+ 06/12/16 08:09 Microcytosis Not Reportable 06/12/16 08:09 Macrocytosis Not Reportable 06/12/16 08:09 Spherocytes Not Reportable 06/12/16 08:09 Pappenheimer Bodies Not Reportable 06/12/16 08:09 Sickle Cells Not Reportable 06/12/16 08:09 Target Cells Few 06/12/16 08:09 Tear Drop Cells Not Reportable 06/12/16 08:09 Ovalocytes Not Reportable 06/12/16 08:09 Helmet Cells Not Reportable 06/12/16 08:09 Zhou-[place] Bodies Not Reportable 06/12/16 08:09 [place] Rings Not Reportable 06/12/16 08:09 Barbi Cells Not Reportable 06/12/16 08:09 Bite Cells Not Reportable 06/12/16 08:09 Crenated Cell Not Reportable 06/12/16 08:09 Elliptocytes Not Reportable 06/12/16 08:09 Acanthocytes (Spur) Not Reportable 06/12/16 08:09 Rouleaux Not Reportable 06/12/16 08:09 Hemoglobin C Crystals Not Reportable 06/12/16 08:09 Schistocytes Not Reportable 06/12/16 08:09 Malaria parasites Not Reportable 06/12/16 08:09 Percent Retic 1.85 % (0.78-2.58) 06/12/16 14:41 Daryl Bodies Not Reportable 06/12/16 08:09 Hem Pathologist Commnt No 06/12/16 08:09 Sodium 127 mmol/L (137-145) L 06/12/16 08:09 Potassium 3.7 mmol/L (3.6-5.0) 06/12/16 08:09 Chloride 96.1 mmol/L (98-107) L 06/12/16 08:09 Carbon Dioxide 27 mmol/L (22-30) 06/12/16 08:09 Anion Gap 8 mmol/L 06/12/16 08:09 BUN 11 mg/dL (9-20) 06/12/16 08:09 Creatinine 1.2 mg/dL (0.8-1.5) 06/12/16 08:09 Estimated GFR > 60 ml/min 06/12/16 08:09 BUN/Creatinine Ratio 9.16 % 06/12/16 08:09 Glucose 88 mg/dL (75-100) 06/12/16 08:09 Uric Acid 8.6 mg/dL (3.5-7.6) H 06/12/16 08:09 Calcium 9.1 mg/dL (8.4-10.2) 06/12/16 08:09 Phosphorus 5.5 mg/dL (2.5-4.5) H 06/12/16 08:09 Magnesium 1.5 mg/dL (1.7-2.3) L 06/11/16 13:53 Ferritin 983.2 ng/mL (13.0-400.0) H 06/12/16 14:41 Total Bilirubin 1.0 mg/dL (0.1-1.2) 06/13/16 07:29 Direct Bilirubin < 0.2 mg/dL (0-0.2) 06/13/16 07:29 Indirect Bilirubin 0.8 mg/dL 06/13/16 07:29 AST 26 units/L (5-40) 06/13/16 07:29 ALT 9 units/L (7-56) 06/13/16 07:29 Alkaline Phosphatase 39 units/L (35-129) 06/13/16 07:29 Total Protein 13.6 g/dL (6.3-8.2) H 06/13/16 07:29 Albumin 2.7 g/dL (3.9-5) L 06/13/16 07:29 Albumin/Globulin Ratio 0.2 % 06/13/16 07:29 Prostate Specific Ag 0.22 ng/mL (0.00-4.00) 06/12/16 14:41 Vitamin B12 2000 pg/mL (211-911) H 06/12/16 14:41 Urine Color Yellow (Yellow) 06/11/16 14:42 Urine Turbidity Clear (Clear) 06/11/16 14:42 Urine pH 7.0 (5.0-7.0) 06/11/16 14:42 Ur Specific [place] 1.008 (1.003-1.030) 06/11/16 14:42 Urine Protein <15 mg/dl mg/dL (Negative) 06/11/16 14:42 Urine Glucose (UA) Neg mg/dL (Negative) 06/11/16 14:42 Urine Ketones Neg mg/dL (Negative) 06/11/16 14:42 Urine Blood Sm (Negative) 06/11/16 14:42 Urine Nitrite Neg (Negative) 06/11/16 14:42 Urine Bilirubin Neg (Negative) 06/11/16 14:42 Urine Urobilinogen 4.0 mg/dL (<2.0) 06/11/16 14:42 Ur Leukocyte Esterase Neg (Negative) 06/11/16 14:42 Urine WBC (Auto) 4.0 /HPF (0.0-6.0) 06/11/16 14:42 Urine RBC (Auto) 6.0 /HPF (0.0-6.0) 06/11/16 14:42 U Epithel Cells (Auto) < 1.0 /HPF (0-13.0) 06/11/16 14:42 Urine Sperm 1+ /HPF (SOFTWARE DEVELOPMENT INTERN) 06/11/16 14:42 Blood Type O POSITIVE 06/11/16 15:58 Antibody Screen Negative 06/11/16 15:58 Crossmatch See Detail 06/11/16 15:58
[2016-06-13] MEDS: LOVENOX SUB-Q SCH (10:21)
[2016-06-13] MEDS: TYLENOL PO PRN ×2 (10:26→20:41)
[2016-06-13 10:47] LABS: Anisocytosis 1+; Basophils % (Manual) 0 % (0.0-1.8); Blastocytes % (Manual) 0 %; Eosinophils % (Manual) 0 % (0.0-4.3); Hypochromasia 1+
[2016-06-13 10:48] LABS: Diff Status Complete; Platelet Estimate Consistent w Auto; Target Cells Rare
[2016-06-13] MEDS: D5NS 1,000 ML IV SCH (18:57)
[2016-06-14] MEDS: DILAUDID IV PRN ×7 (01:24→20:52)
[2016-06-14 06:36] LABS: Hemoglobin 6.9 gm/dl (11.8-15.2); Mean Corpuscular HGB Conc 36 % (32-34); Mean Corpuscular Hemoglobin 33 pg (28-32); Mean Corpuscular Volume 93 fl (84-94); Red Cell Distribution Width 15.9 % (13.2-15.2); White Blood Count 6.6 K/mm3 (4.5-11.0)
[2016-06-14 06:39] LABS: Anion Gap 7 mmol/L; Blood Urea Nitrogen 11 mg/dL (9-20); Calcium 9.4 mg/dL (8.4-10.2); Carbon Dioxide 29 mmol/L (22-30); Chloride 96.4 mmol/L (98-107); Glucose 88 mg/dL (75-100); Potassium 3.8 mmol/L (3.6-5.0); Sodium 129 mmol/L (137-145)
[2016-06-14 06:40] LABS: Platelet Count 88 K/mm3 (140-440)
[2016-06-14 06:42] LABS: Hematocrit 19.5 % (35.5-45.6)
[2016-06-14 07:54] LABS: Anisocytosis 1+; Basophils % (Manual) 0 % (0.0-1.8); Blastocytes % (Manual) 0 %; Diff Status Complete; Eosinophils % (Manual) 0 % (0.0-4.3); Hypochromasia 1+
[2016-06-14] MEDS: D5NS 1,000 ML IV SCH (08:51)
[2016-06-14] MEDS ORDERED: NACL 0.9% 500 ML 500 ML IV ONE ×2 (09:02→12:00)
--- NOTE | 2016-06-14 09:02 | Hem/Onc Progress Note ---
Assessment and Plan 1- anemia. ferritin and B12 are not low.Hb dropped. needs to be transfused with 2 units PRBC 2- lytic bone lesions on survey. very suspicious for multiple myeloma, especially with high proteins. SPEP and SIEP pending. will order bone marrow bx. bx of soft tissue mass (probably plasmacytoma is pending) Subjective Date of service: 06/14/16 Principal diagnosis: anemia Interval history: still has pain in lt hip area Objective - Constitutional Vitals: Last Vital Signs Temp 98.4 F 06/14/16 08:00 Pulse 72 06/14/16 08:00 Resp 16 06/14/16 08:54 BP 106/58 06/14/16 08:00 Pulse Ox 98 06/14/16 08:00 General appearance: no acute distress - Labs Lab Results: Laboratory Results - last 24 hr 06/13/16 06/14/16 06/14/16 07:29 05:57 05:57 WBC 6.6 RBC 2.10 L Hgb 6.9 L Hct 19.5 L* MCV 93 MCH 33 H MCHC 36 H RDW 15.9 H Plt Count 88 L Add Manual Diff Complete Complete Total Counted 100 100 Seg Neuts % (Manual) 53.0 60.0 Band Neutrophils % 4.0 2.0 Lymphocytes % (Manual) 35.0 33.0 Reactive Lymphs % (Man) 0 0 Monocytes % (Manual) 8.0 H 5.0 Eosinophils % (Manual) 0 0 Basophils % (Manual) 0 0 Metamyelocytes % 0 0 Myelocytes % 0 0 Promyelocytes % 0 0 Blast Cells % 0 0 Nucleated RBC % 3.0 H Not Reportable Seg Neutrophils # Man 3.3 4.0 Band Neutrophils # 0.2 0.1 Lymphocytes # (Manual) 2.2 2.2 Abs React Lymphs (Man) 0.0 0.0 Monocytes # (Manual) 0.5 0.3 Eosinophils # (Manual) 0.0 0.0 Basophils # (Manual) 0.0 0.0 Metamyelocytes # 0.0 0.0 Myelocytes # 0.0 0.0 Promyelocytes # 0.0 0.0 Blast Cells # 0.0 0.0 WBC Morphology Not Reportable Not Reportable Hypersegmented Neuts Not Reportable Not Reportable Hyposegmented Neuts Not Reportable Not Reportable Hypogranular Neuts Not Reportable Not Reportable Smudge Cells Not Reportable Not Reportable Toxic Granulation Not Reportable Not Reportable Toxic Vacuolation Not Reportable Not Reportable Dohle Bodies Not Reportable Not Reportable Pelger-Huet Anomaly Not Reportable Not Reportable David Rods Not Reportable Not Reportable Platelet Estimate Consistent w auto Not Reportable Clumped Platelets Not Reportable Not Reportable Plt Clumps, EDTA Not Reportable Not Reportable Large Platelets Not Reportable Not Reportable Giant Platelets Not Reportable Not Reportable Platelet Satelliting Not Reportable Not Reportable Plt Morphology Comment Not Reportable Not Reportable RBC Morphology Not Reportable Not Reportable Dimorphic RBCs Not Reportable Not Reportable Polychromasia Not Reportable Not Reportable Hypochromasia 1+ 1+ Poikilocytosis Not Reportable Not Reportable Anisocytosis 1+ 1+ Microcytosis Not Reportable Not Reportable Macrocytosis Not Reportable Not Reportable Spherocytes Not Reportable Not Reportable Pappenheimer Bodies Not Reportable Not Reportable Sickle Cells Not Reportable Not Reportable Target Cells Rare Not Reportable Tear Drop Cells Not Reportable Not Reportable Ovalocytes Not Reportable Not Reportable Helmet Cells Not Reportable Not Reportable Zhou-[place] Bodies Not Reportable Not Reportable [place] Rings Not Reportable Not Reportable Barbi Cells Not Reportable Not Reportable Bite Cells Not Reportable Not Reportable Crenated Cell Not Reportable Not Reportable Elliptocytes Not Reportable Not Reportable Acanthocytes (Spur) Not Reportable Not Reportable Rouleaux Not Reportable Not Reportable Hemoglobin C Crystals Not Reportable Not Reportable Schistocytes Not Reportable Not Reportable Mal[place] parasites Not Reportable Not Reportable Daryl Bodies Not Reportable Not Reportable Hem Pathologist Commnt No No Sodium 129 L Potassium 3.8 Chloride 96.4 L Carbon Dioxide 29 Anion Gap 7 BUN 11 Creatinine 1.0 Estimated GFR > 60 BUN/Creatinine Ratio 11.00 Glucose 88 Calcium 9.4 - Imaging and cardiology Other: image reviewed (bone survey reviewed)
[2016-06-14] MEDS: LOVENOX SUB-Q SCH (09:12)
--- NOTE | 2016-06-14 09:56 | Progress Note ---
Assessment and Plan Assessment and plan: --Metastatic cancer probably prostate cancer or osseous origin Continue supportive care, oncology following Possible bone marrow biopsy, follow inguinal mass biopsy Possible multiple myeloma, workup is in progress --Severe anemia secondary to underlying malignant process Status post PRBC transfusion, transfuse additional PRBC Closely monitor H&H --Hyponatremia; mild improvement, gentle replacement therapy Patient has history of chronic hyponatremia --Severe malnutrition; can do to underlying malignant process Nutrition supplement and supportive care, follow dietary consult and recommendations --DVT prophylaxis; On Lovenox Consults and recommendations noted and appreciated Plan of care Discussed with the patient as well as the nurse History Interval history: Patient seen and evaluated medical records reviewed No new events reported by the nursing staff Patient remains anemic, transfuse 2 units of PRBC today Patient complains of generalized weakness, and vague pain in the hip Alert awake oriented 3 not in acute distress Vital signs reviewed, stable Hospitalist Physical - Constitutional Vitals: Temp Pulse Resp BP Pulse Ox 98.4 F 72 16 106/58 98 06/14/16 08:00 06/14/16 08:00 06/14/16 08:54 06/14/16 08:00 06/14/16 08:00 General appearance: Present: no acute distress, cachectic, disheveled, other ( chronically looking) - EENT Eyes: Present: PERRL, EOM intact - Neck Neck: Present: supple, normal ROM - Respiratory Respiratory effort: normal Respiratory: bilateral: diminished, negative: rales, rhonchi, wheezing - Cardiovascular Rhythm: regular Heart Sounds: Present: S1 & S2 - Extremities Extremities: no ischemia, pulses intact, pulses symmetrical Peripheral Pulses: within normal limits - Abdominal General gastrointestinal: soft, non-tender, non-distended, normal bowel sounds - Integumentary Integumentary: Present: clear, warm - Psychiatric Psychiatric: appropriate mood/affect, cooperative - Neurologic Neurologic: CNII-XII intact, moves all extremities Results - Labs CBC & Chem 7: 06/14/16 05:57 06/14/16 05:57 Labs: Laboratory Last Values WBC 6.6 K/mm3 (4.5-11.0) 06/14/16 05:57 RBC 2.10 M/mm3 (3.65-5.03) L 06/14/16 05:57 Hgb 6.9 gm/dl (11.8-15.2) L 06/14/16 05:57 Hct 19.5 % (35.5-45.6) L* 06/14/16 05:57 MCV 93 fl (84-94) 06/14/16 05:57 MCH 33 pg (28-32) H 06/14/16 05:57 MCHC 36 % (32-34) H 06/14/16 05:57 RDW 15.9 % (13.2-15.2) H 06/14/16 05:57 Plt Count 88 K/mm3 (140-440) L 06/14/16 05:57 [place] % (Auto) Relay Engineer 06/12/16 08:09 Add Manual Diff Complete 06/14/16 05:57 Total Counted 100 06/14/16 05:57 Seg Neuts % (Manual) 60.0 % (40.0-70.0) 06/14/16 05:57 Band Neutrophils % 2.0 % 06/14/16 05:57 Lymphocytes % (Manual) 33.0 % (13.4-35.0) 06/14/16 05:57 Reactive Lymphs % (Man) 0 % 06/14/16 05:57 Monocytes % (Manual) 5.0 % (0.0-7.3) 06/14/16 05:57 Eosinophils % (Manual) 0 % (0.0-4.3) 06/14/16 05:57 Basophils % (Manual) 0 % (0.0-1.8) 06/14/16 05:57 Metamyelocytes % 0 % 06/14/16 05:57 Myelocytes % 0 % 06/14/16 05:57 Promyelocytes % 0 % 06/14/16 05:57 Blast Cells % 0 % 06/14/16 05:57 Nucleated RBC % Not Reportable 06/14/16 05:57 Seg Neutrophils # Man 4.0 K/mm3 (1.8-7.7) 06/14/16 05:57 Band Neutrophils # 0.1 K/mm3 06/14/16 05:57 Lymphocytes # (Manual) 2.2 K/mm3 (1.2-5.4) 06/14/16 05:57 Abs React Lymphs (Man) 0.0 K/mm3 06/14/16 05:57 Monocytes # (Manual) 0.3 K/mm3 (0.0-0.8) 06/14/16 05:57 Eosinophils # (Manual) 0.0 K/mm3 (0.0-0.4) 06/14/16 05:57 Basophils # (Manual) 0.0 K/mm3 (0.0-0.1) 06/14/16 05:57 Metamyelocytes # 0.0 K/mm3 06/14/16 05:57 Myelocytes # 0.0 K/mm3 06/14/16 05:57 Promyelocytes # 0.0 K/mm3 06/14/16 05:57 Blast Cells # 0.0 K/mm3 06/14/16 05:57 WBC Morphology Not Reportable 06/14/16 05:57 Hypersegmented Neuts Not Reportable 06/14/16 05:57 Hyposegmented Neuts Not Reportable 06/14/16 05:57 Hypogranular Neuts Not Reportable 06/14/16 05:57 Smudge Cells Not Reportable 06/14/16 05:57 Toxic Granulation Not Reportable 06/14/16 05:57 Toxic Vacuolation Not Reportable 06/14/16 05:57 Dohle Bodies Not Reportable 06/14/16 05:57 Pelger-Huet Anomaly Not Reportable 06/14/16 05:57 David Rods Not Reportable 06/14/16 05:57 Platelet Estimate Not Reportable 06/14/16 05:57 Clumped Platelets Not Reportable 06/14/16 05:57 Plt Clumps, EDTA Not Reportable 06/14/16 05:57 Large Platelets Not Reportable 06/14/16 05:57 Giant Platelets Not Reportable 06/14/16 05:57 Platelet Satelliting Not Reportable 06/14/16 05:57 Plt Morphology Comment Not Reportable 06/14/16 05:57 RBC Morphology Not Reportable 06/14/16 05:57 Dimorphic RBCs Not Reportable 06/14/16 05:57 Polychromasia Not Reportable 06/14/16 05:57 Hypochromasia 1+ 06/14/16 05:57 Poikilocytosis Not Reportable 06/14/16 05:57 Anisocytosis 1+ 06/14/16 05:57 Microcytosis Not Reportable 06/14/16 05:57 Macrocytosis Not Reportable 06/14/16 05:57 Spherocytes Not Reportable 06/14/16 05:57 Pappenheimer Bodies Not Reportable 06/14/16 05:57 Sickle Cells Not Reportable 06/14/16 05:57 Target Cells Not Reportable 06/14/16 05:57 Tear Drop Cells Not Reportable 06/14/16 05:57 Ovalocytes Not Reportable 06/14/16 05:57 Helmet Cells Not Reportable 06/14/16 05:57 Zhou-[place] Bodies Not Reportable 06/14/16 05:57 [place] Rings Not Reportable 06/14/16 05:57 Barbi Cells Not Reportable 06/14/16 05:57 Bite Cells Not Reportable 06/14/16 05:57 Crenated Cell Not Reportable 06/14/16 05:57 Elliptocytes Not Reportable 06/14/16 05:57 Acanthocytes (Spur) Not Reportable 06/14/16 05:57 Rouleaux Not Reportable 06/14/16 05:57 Hemoglobin C Crystals Not Reportable 06/14/16 05:57 Schistocytes Not Reportable 06/14/16 05:57 Malaria parasites Not Reportable 06/14/16 05:57 Percent Retic 1.85 % (0.78-2.58) 06/12/16 14:41 Daryl Bodies Not Reportable 06/14/16 05:57 Hem Pathologist Commnt No 06/14/16 05:57 Sodium 129 mmol/L (137-145) L 06/14/16 05:57 Potassium 3.8 mmol/L (3.6-5.0) 06/14/16 05:57 Chloride 96.4 mmol/L (98-107) L 06/14/16 05:57 Carbon Dioxide 29 mmol/L (22-30) 06/14/16 05:57 Anion Gap 7 mmol/L 06/14/16 05:57 BUN 11 mg/dL (9-20) 06/14/16 05:57 Creatinine 1.0 mg/dL (0.8-1.5) 06/14/16 05:57 Estimated GFR > 60 ml/min 06/14/16 05:57 BUN/Creatinine Ratio 11.00 % 06/14/16 05:57 Glucose 88 mg/dL (75-100) 06/14/16 05:57 Uric Acid 8.6 mg/dL (3.5-7.6) H 06/12/16 08:09 Calcium 9.4 mg/dL (8.4-10.2) 06/14/16 05:57 Phosphorus 5.5 mg/dL (2.5-4.5) H 06/12/16 08:09 Magnesium 1.5 mg/dL (1.7-2.3) L 06/11/16 13:53 Ferritin 983.2 ng/mL (13.0-400.0) H 06/12/16 14:41 Total Bilirubin 1.0 mg/dL (0.1-1.2) 06/13/16 07:29 Direct Bilirubin < 0.2 mg/dL (0-0.2) 06/13/16 07:29 Indirect Bilirubin 0.8 mg/dL 06/13/16 07:29 AST 26 units/L (5-40) 06/13/16 07:29 ALT 9 units/L (7-56) 06/13/16 07:29 Alkaline Phosphatase 39 units/L (35-129) 06/13/16 07:29 Total Protein 13.6 g/dL (6.3-8.2) H 06/13/16 07:29 Albumin 2.7 g/dL (3.9-5) L 06/13/16 07:29 Albumin/Globulin Ratio 0.2 % 06/13/16 07:29 Prostate Specific Ag 0.22 ng/mL (0.00-4.00) 06/12/16 14:41 Vitamin B12 2000 pg/mL (211-911) H 06/12/16 14:41 Urine Color Yellow (Yellow) 06/11/16 14:42 Urine Turbidity Clear (Clear) 06/11/16 14:42 Urine pH 7.0 (5.0-7.0) 06/11/16 14:42 Ur Specific [place] 1.008 (1.003-1.030) 06/11/16 14:42 Urine Protein <15 mg/dl mg/dL (Negative) 06/11/16 14:42 Urine Glucose (UA) Neg mg/dL (Negative) 06/11/16 14:42 Urine Ketones Neg mg/dL (Negative) 06/11/16 14:42 Urine Blood Sm (Negative) 06/11/16 14:42 Urine Nitrite Neg (Negative) 06/11/16 14:42 Urine Bilirubin Neg (Negative) 06/11/16 14:42 Urine Urobilinogen 4.0 mg/dL (<2.0) 06/11/16 14:42 Ur Leukocyte Esterase Neg (Negative) 06/11/16 14:42 Urine WBC (Auto) 4.0 /HPF (0.0-6.0) 06/11/16 14:42 Urine RBC (Auto) 6.0 /HPF (0.0-6.0) 06/11/16 14:42 U Epithel Cells (Auto) < 1.0 /HPF (0-13.0) 06/11/16 14:42 Urine Sperm 1+ /HPF (CUSTOMER SERVICE CORRESPONDENCE CLERK) 06/11/16 14:42 Blood Type O POSITIVE 06/11/16 15:58 Antibody Screen Negative 06/11/16 15:58 Crossmatch See Detail 06/11/16 15:58
[2016-06-14] MEDS: TYLENOL PO PRN (11:24)
[2016-06-15] MEDS: DILAUDID IV PRN ×6 (00:06→20:50)
[2016-06-15] MEDS: D5NS 1,000 ML IV SCH (00:09)
[2016-06-15 06:50] LABS: Hemoglobin 8.4 gm/dl (11.8-15.2); Mean Corpuscular HGB Conc 35 % (32-34); Mean Corpuscular Hemoglobin 32 pg (28-32); Mean Corpuscular Volume 92 fl (84-94); Red Blood Count 2.62 M/mm3 (3.65-5.03); Red Cell Distribution Width 16.7 % (13.2-15.2); White Blood Count 6.6 K/mm3 (4.5-11.0)
[2016-06-15 06:56] LABS: Platelet Count 86 K/mm3 (140-440)
[2016-06-15 08:04] LABS: Blastocytes % (Manual) 0 %
[2016-06-15 08:05] LABS: Anisocytosis 1+; Hypochromasia 1+; Poikilocytosis 1+; Stomatocytes Few; Target Cells Rare
[2016-06-15 08:06] LABS: Diff Status Complete; Large Platelets Rare; Microcytosis Few; Platelet Estimate Appears Decreased
--- NOTE | 2016-06-15 08:48 | Hem/Onc Progress Note ---
Assessment and Plan All labs suggestive of multiple myeloma. Awaiting bone marrow biopsy. Also left hip biopsy is awaited. Continue pain control. Discussed with the patient. Subjective Date of service: 06/15/16 Interval history: Patient complains of left hip pain. Bone marrow biopsy is postponed until tomorrow because of the CT machine issues. Objective - Constitutional Vitals: Last Vital Signs Temp 98.4 F 06/15/16 08:01 Pulse 72 06/15/16 08:01 Resp 20 06/15/16 08:01 BP 112/60 06/15/16 08:01 Pulse Ox 98 06/15/16 08:01 Pain Intensity (0-10): 5/10 Performance status: 2- selfcare, ambulatory - Neck Neck: supple - Respiratory Respiratory effort: Positive: normal - Cardiovascular Rhythm: regular - Gastrointestinal General gastrointestinal: Present: soft - Labs Lab Results: Laboratory Results - last 24 hr 06/15/16 05:51 WBC 6.6 RBC 2.62 L Hgb 8.4 L Hct 24.0 L MCV 92 MCH 32 MCHC 35 H RDW 16.7 H Plt Count 86 L [place] % (Auto) C D Still Operator Add Manual Diff Complete Total Counted 100 Seg Neuts % (Manual) 55.0 Band Neutrophils % 2.0 Lymphocytes % (Manual) 26.0 Reactive Lymphs % (Man) 0 Monocytes % (Manual) 10.0 H Eosinophils % (Manual) 1.0 Basophils % (Manual) 1.0 Metamyelocytes % 0 Myelocytes % 1.0 Promyelocytes % 4.0 Blast Cells % 0 Nucleated RBC % 1.0 H Seg Neutrophils # Man 3.6 Band Neutrophils # 0.1 Lymphocytes # (Manual) 1.7 Abs React Lymphs (Man) 0.0 Monocytes # (Manual) 0.7 Eosinophils # (Manual) 0.1 Basophils # (Manual) 0.1 Metamyelocytes # 0.0 Myelocytes # 0.1 Promyelocytes # 0.3 Blast Cells # 0.0 WBC Morphology Not Reportable Hypersegmented Neuts Not Reportable Hyposegmented Neuts Not Reportable Hypogranular Neuts Not Reportable Smudge Cells Not Reportable Toxic Granulation Not Reportable Toxic Vacuolation Not Reportable Dohle Bodies Not Reportable Pelger-Huet Anomaly Not Reportable David Rods Not Reportable Platelet Estimate Appears decreased Clumped Platelets Not Reportable Plt Clumps, EDTA Not Reportable Large Platelets Rare Giant Platelets Not Reportable Platelet Satelliting Not Reportable Plt Morphology Comment Not Reportable RBC Morphology Not Reportable Dimorphic RBCs Not Reportable Polychromasia Not Reportable Hypochromasia 1+ Poikilocytosis 1+ Anisocytosis 1+ Microcytosis Few Macrocytosis Not Reportable Spherocytes Not Reportable Pappenheimer Bodies Not Reportable Sickle Cells Not Reportable Target Cells Rare Tear Drop Cells Not Reportable Ovalocytes Not Reportable Stomatocytes Few Helmet Cells Not Reportable Zhou-[place] Bodies Not Reportable [place] Rings Not Reportable [place] Cells Not Reportable Bite Cells Not Reportable Crenated Cell Not Reportable Elliptocytes Not Reportable Acanthocytes (Spur) Not Reportable Rouleaux Not Reportable Hemoglobin C Crystals Not Reportable Schistocytes Not Reportable Malaria parasites Not Reportable Daryl Bodies Not Reportable Hem Pathologist Commnt No
[2016-06-15] MEDS: LOVENOX SUB-Q SCH (11:20)
--- NOTE | 2016-06-15 11:52 | Admit Criteria Form ---
Admission Criteria Documentation: HYPONATREMIA; HYPERNATREMIA; HYPOKALEMIA; HYPERKALEMIA; HYPOCALCEMIA; HYPERCALCEMIA Clinical Indications for Inpatient Care (Place 'X' for any and all applicable criteria): Ongoing inpatient care may be indicated for ANY ONE of the following [G](1)(2)(3 )(5): [X ]I. Hyponatremia with ANY ONE of the following: [ X]a) Sodium less than 130 mEq/L (mmol/L) (new) (6)(22) [ ]b) Sodium less than 135 mEq/L (mmol/L) with ANY ONE of the following: [ ]i) Severe medical etiology requiring inpatient management (eg, heart failure, hypovolemia) [ ]ii) Altered mental status [ ]iii) Seizures [ ]II. Hypernatremia with ANY ONE of the following: [ ]a) Sodium greater than 155 mEq/L (mmol/L) [ ]b) Sodium greater than 150 mEq/L (mmol/L) with ANY ONE of the following: [ ] i) Altered mental status [ ]ii) Seizures [ ]iii) Severe medical etiology (eg, hypovolemia, diabetes insipidus) [ ]iv) Severe weakness [ ]v) Severe medical etiology (eg, hemolysis, infection, drug overdose) [ ]III. Hypokalemia with ANY ONE of the following: [ ]a) Potassium less than 2.5 mEq/L (mmol/L) despite outpatient and emergency treatment [ ]b) Potassium less than 3.0 mEq/L (mmol/L) with ANY ONE of the following: [ ]i) Weakness [ ]ii) Cardiac abnormality (eg, arrhythmia, conduction disturbance) [ ]iii) Cardiac ischemia [ ]iv) Ileus [ ]v) Ongoing medical cause requiring inpatient management. ( e.g., acute renal wasting, SIADH) [ ]vi) Other severe symptoms [ ] IV. Hyperkalemia with ANY ONE of the following: [ ]a) Potassium greater than 6.5 mEq/L (mmol/L) [ ]b) Potassium greater than 5 mEq/L (mmol/L) with ANY ONE of the following: [ ]i) Severe ECG findings [H] [ ]ii) Acute worsening of renal failure (creatinine greater than 2.5 mg/dL (221 micromoles/L) or significant elevation for age and size) [ ] V. Hypocalcemia with ANY ONE of the following: [ ]a) Calcium less than 7 mg/dL (1.75 mmol/L) despite outpatient and emergency treatment(19) [ ]b) Calcium less than 8 mg/dL (2 mmol/L) with significant symptoms or findings; examples include: [ ]i) Cardiac abnormality (eg, arrhythmia or conduction disturbance) [ ]ii) Altered mental status [ ]iii) Seizures [ ]iv) Breathing difficulty [ ]v) Muscle spasms [ ]. Hypercalcemia with ANY ONE of the following: [ ]a) Calcium greater than 14 mg/dL (3.5 mmol/L) [ ]b) Calcium greater than 12 mg/dL (3 mmol/L) with ANY ONE of the following: [ ]i) Significant dehydration or hypovolemia as indicated by ANY ONE of the following(2): [ ]1. Clinically significant dehydration as indicated by ANY ONE of the following: [ ]A. Acute loss of weight from baseline (5% of body weight in adults, 9% in pediatric patients) [ ]B. Hemodynamic instability [ ]C. Acute renal failure [ ]D. Serum sodium greater than 150 mEq/L (mmol/L) [ ]2) Dehydration that is persistent indicated by ALL of the following: [ ]A. Oral rehydration therapy not tolerated or insufficient to adequately correct dehydration [ ]B. Appropriate intravenous treatment (eg, fluids ) does not readily correct dehydration ie, after 12 to 24 hours of treatment) [ ]ii) Significant symptoms or findings; examples include: [ ]1) Altered mental status [ ]2) Cardiac abnormality (eg, arrhythmia, conduction disturbance) [ ]3) Cardiac abnormality (eg, arrhythmia, conduction disturbance) The original [email or web address] content created by [email or web address] has been revised. The portions of the content which have been revised are identified through the use of italic text or in bold, and [facility] has neither reviewed nor approved the modified material. All other unmodified content is copyright [facility] [employer] Please see references footnoted in the original [facility] [employer] edition 2016 Admission Criteria Met: Yes
--- NOTE | 2016-06-15 16:30 | Progress Note ---
Assessment and Plan Assessment and plan: Awaiting CT-guided biopsy of inguinal mass/bone lesion --Metastatic cancer probably prostate cancer or osseous origin Continue supportive care, oncology following Possible bone marrow biopsy, follow inguinal mass biopsy Possible multiple myeloma, workup is in progress --Severe anemia secondary to underlying malignant process Status post PRBC transfusion, transfuse additional PRBC Closely monitor H&H --Hyponatremia; mild improvement, gentle replacement therapy Patient has history of chronic hyponatremia --Severe malnutrition; can do to underlying malignant process Nutrition supplement and supportive care, follow dietary consult and recommendations --DVT prophylaxis; On Lovenox Consults and recommendations noted and appreciated Plan of care Discussed with the patient as well as the nurse History Interval history: Recent seen and evaluated medical records reviewed Oncology recommended CT-guided biopsy [place] as well as the bone lesion Patient complains of generalized body pain Alert awake oriented 3 not in acute distress Hospitalist Physical - Constitutional Vitals: Temp Pulse Resp BP Pulse Ox 98.5 F 68 18 110/58 98 06/15/16 16:17 06/15/16 16:17 06/15/16 16:17 06/15/16 16:17 06/15/16 08:01 General appearance: Present: no acute distress, cachectic, disheveled, other ( chronically looking) - EENT Eyes: Present: PERRL, EOM intact - Neck Neck: Present: supple, normal ROM - Respiratory Respiratory effort: normal Respiratory: negative: rales, rhonchi, wheezing - Cardiovascular Rhythm: regular Heart Sounds: Present: S1 & S2 - Extremities Extremities: no ischemia, pulses intact, pulses symmetrical Peripheral Pulses: within normal limits - Abdominal General gastrointestinal: soft, non-tender, non-distended, normal bowel sounds - Integumentary Integumentary: Present: clear, warm - Psychiatric Psychiatric: appropriate mood/affect, cooperative - Neurologic Neurologic: CNII-XII intact, moves all extremities Results - Labs CBC & Chem 7: 06/15/16 05:51 06/14/16 05:57 Labs: Laboratory Last Values WBC 6.6 K/mm3 (4.5-11.0) 06/15/16 05:51 RBC 2.62 M/mm3 (3.65-5.03) L 06/15/16 05:51 Hgb 8.4 gm/dl (11.8-15.2) L 06/15/16 05:51 Hct 24.0 % (35.5-45.6) L 06/15/16 05:51 MCV 92 fl (84-94) 06/15/16 05:51 MCH 32 pg (28-32) 06/15/16 05:51 MCHC 35 % (32-34) H 06/15/16 05:51 RDW 16.7 % (13.2-15.2) H 06/15/16 05:51 Plt Count 86 K/mm3 (140-440) L 06/15/16 05:51 [place] % (Auto) Machine Stone Polisher 06/15/16 05:51 Add Manual Diff Complete 06/15/16 05:51 Total Counted 100 06/15/16 05:51 Seg Neuts % (Manual) 55.0 % (40.0-70.0) 06/15/16 05:51 Band Neutrophils % 2.0 % 06/15/16 05:51 Lymphocytes % (Manual) 26.0 % (13.4-35.0) 06/15/16 05:51 Reactive Lymphs % (Man) 0 % 06/15/16 05:51 Monocytes % (Manual) 10.0 % (0.0-7.3) H 06/15/16 05:51 Eosinophils % (Manual) 1.0 % (0.0-4.3) 06/15/16 05:51 Basophils % (Manual) 1.0 % (0.0-1.8) 06/15/16 05:51 Metamyelocytes % 0 % 06/15/16 05:51 Myelocytes % 1.0 % 06/15/16 05:51 Promyelocytes % 4.0 % 06/15/16 05:51 Blast Cells % 0 % 06/15/16 05:51 Nucleated RBC % 1.0 % (0.0-0.9) H 06/15/16 05:51 Seg Neutrophils # Man 3.6 K/mm3 (1.8-7.7) 06/15/16 05:51 Band Neutrophils # 0.1 K/mm3 06/15/16 05:51 Lymphocytes # (Manual) 1.7 K/mm3 (1.2-5.4) 06/15/16 05:51 Abs React Lymphs (Man) 0.0 K/mm3 06/15/16 05:51 Monocytes # (Manual) 0.7 K/mm3 (0.0-0.8) 06/15/16 05:51 Eosinophils # (Manual) 0.1 K/mm3 (0.0-0.4) 06/15/16 05:51 Basophils # (Manual) 0.1 K/mm3 (0.0-0.1) 06/15/16 05:51 Metamyelocytes # 0.0 K/mm3 06/15/16 05:51 Myelocytes # 0.1 K/mm3 06/15/16 05:51 Promyelocytes # 0.3 K/mm3 06/15/16 05:51 Blast Cells # 0.0 K/mm3 06/15/16 05:51 WBC Morphology Not Reportable 06/15/16 05:51 Hypersegmented Neuts Not Reportable 06/15/16 05:51 Hyposegmented Neuts Not Reportable 06/15/16 05:51 Hypogranular Neuts Not Reportable 06/15/16 05:51 Smudge Cells Not Reportable 06/15/16 05:51 Toxic Granulation Not Reportable 06/15/16 05:51 Toxic Vacuolation Not Reportable 06/15/16 05:51 Dohle Bodies Not Reportable 06/15/16 05:51 Pelger-Huet Anomaly Not Reportable 06/15/16 05:51 David Rods Not Reportable 06/15/16 05:51 Platelet Estimate Appears decreased 06/15/16 05:51 Clumped Platelets Not Reportable 06/15/16 05:51 Plt Clumps, EDTA Not Reportable 06/15/16 05:51 Large Platelets Rare 06/15/16 05:51 Giant Platelets Not Reportable 06/15/16 05:51 Platelet Satelliting Not Reportable 06/15/16 05:51 Plt Morphology Comment Not Reportable 06/15/16 05:51 RBC Morphology Not Reportable 06/15/16 05:51 Dimorphic RBCs Not Reportable 06/15/16 05:51 Polychromasia Not Reportable 06/15/16 05:51 Hypochromasia 1+ 06/15/16 05:51 Poikilocytosis 1+ 06/15/16 05:51 Anisocytosis 1+ 06/15/16 05:51 Microcytosis Few 06/15/16 05:51 Macrocytosis Not Reportable 06/15/16 05:51 Spherocytes Not Reportable 06/15/16 05:51 Pappenheimer Bodies Not Reportable 06/15/16 05:51 Sickle Cells Not Reportable 06/15/16 05:51 Target Cells Rare 06/15/16 05:51 Tear Drop Cells Not Reportable 06/15/16 05:51 Ovalocytes Not Reportable 06/15/16 05:51 Stomatocytes Few 06/15/16 05:51 Helmet Cells Not Reportable 06/15/16 05:51 Zhou-[place] Bodies Not Reportable 06/15/16 05:51 [place] Rings Not Reportable 06/15/16 05:51 [place] Cells Not Reportable 06/15/16 05:51 Bite Cells Not Reportable 06/15/16 05:51 Crenated Cell Not Reportable 06/15/16 05:51 Elliptocytes Not Reportable 06/15/16 05:51 Acanthocytes (Spur) Not Reportable 06/15/16 05:51 Rouleaux Not Reportable 06/15/16 05:51 Hemoglobin C Crystals Not Reportable 06/15/16 05:51 Schistocytes Not Reportable 06/15/16 05:51 Malaria parasites Not Reportable 06/15/16 05:51 Percent Retic 1.85 % (0.78-2.58) 06/12/16 14:41 Daryl Bodies Not Reportable 06/15/16 05:51 Hem Pathologist Commnt No 06/15/16 05:51 Sodium 129 mmol/L (137-145) L 06/14/16 05:57 Potassium 3.8 mmol/L (3.6-5.0) 06/14/16 05:57 Chloride 96.4 mmol/L (98-107) L 06/14/16 05:57 Carbon Dioxide 29 mmol/L (22-30) 06/14/16 05:57 Anion Gap 7 mmol/L 06/14/16 05:57 BUN 11 mg/dL (9-20) 06/14/16 05:57 Creatinine 1.0 mg/dL (0.8-1.5) 06/14/16 05:57 Estimated GFR > 60 ml/min 06/14/16 05:57 BUN/Creatinine Ratio 11.00 % 06/14/16 05:57 Glucose 88 mg/dL (75-100) 06/14/16 05:57 Uric Acid 8.6 mg/dL (3.5-7.6) H 06/12/16 08:09 Calcium 9.4 mg/dL (8.4-10.2) 06/14/16 05:57 Phosphorus 5.5 mg/dL (2.5-4.5) H 06/12/16 08:09 Magnesium 1.5 mg/dL (1.7-2.3) L 06/11/16 13:53 Ferritin 983.2 ng/mL (13.0-400.0) H 06/12/16 14:41 Total Bilirubin 1.0 mg/dL (0.1-1.2) 06/13/16 07:29 Direct Bilirubin < 0.2 mg/dL (0-0.2) 06/13/16 07:29 Indirect Bilirubin 0.8 mg/dL 06/13/16 07:29 AST 26 units/L (5-40) 06/13/16 07:29 ALT 9 units/L (7-56) 06/13/16 07:29 Alkaline Phosphatase 39 units/L (35-129) 06/13/16 07:29 Total Protein 13.6 g/dL (6.3-8.2) H 06/13/16 07:29 Albumin 2.7 g/dL (3.9-5) L 06/13/16 07:29 Albumin/Globulin Ratio 0.2 % 06/13/16 07:29 Prostate Specific Ag 0.22 ng/mL (0.00-4.00) 06/12/16 14:41 Vitamin B12 2000 pg/mL (211-911) H 06/12/16 14:41 Urine Color Yellow (Yellow) 06/11/16 14:42 Urine Turbidity Clear (Clear) 06/11/16 14:42 Urine pH 7.0 (5.0-7.0) 06/11/16 14:42 Ur Specific [place] 1.008 (1.003-1.030) 06/11/16 14:42 Urine Protein <15 mg/dl mg/dL (Negative) 06/11/16 14:42 Urine Glucose (UA) Neg mg/dL (Negative) 06/11/16 14:42 Urine Ketones Neg mg/dL (Negative) 06/11/16 14:42 Urine Blood Sm (Negative) 06/11/16 14:42 Urine Nitrite Neg (Negative) 06/11/16 14:42 Urine Bilirubin Neg (Negative) 06/11/16 14:42 Urine Urobilinogen 4.0 mg/dL (<2.0) 06/11/16 14:42 Ur Leukocyte Esterase Neg (Negative) 06/11/16 14:42 Urine WBC (Auto) 4.0 /HPF (0.0-6.0) 06/11/16 14:42 Urine RBC (Auto) 6.0 /HPF (0.0-6.0) 06/11/16 14:42 U Epithel Cells (Auto) < 1.0 /HPF (0-13.0) 06/11/16 14:42 Urine Sperm 1+ /HPF (PLANT CYTOLOGIST) 06/11/16 14:42 Blood Type O POSITIVE 06/11/16 15:58 Antibody Screen Negative 06/11/16 15:58 Crossmatch See Detail 06/11/16 15:58
[2016-06-15 21:44] LABS: Abnormal Protein Band 1 6.4 g/dL (()); Albumin 4.6 g/dL (3.8-4.8); Gamma Globulin 6.8 g/dL (0.8-1.7)
[2016-06-16] MEDS: DILAUDID IV PRN ×6 (01:43→23:50)
[2016-06-16 08:04] LABS: Hematocrit 26.4 % (35.5-45.6); Hemoglobin 9.1 gm/dl (11.8-15.2); Mean Corpuscular HGB Conc 35 % (32-34); Mean Corpuscular Hemoglobin 32 pg (28-32); Mean Corpuscular Volume 92 fl (84-94); Red Blood Count 2.87 M/mm3 (3.65-5.03); Red Cell Distribution Width 16.9 % (13.2-15.2); White Blood Count 7.2 K/mm3 (4.5-11.0)
--- NOTE | 2016-06-16 08:47 | Hem/Onc Progress Note ---
Assessment and Plan Patient's serum protein electrophoresis confirming multiple myeloma. After biopsy, we will start him on some steroids. Would need geriatric social worker help the cause of his social situation. Subjective Date of service: 06/16/16 Interval history: Patient get his biopsy today. Continues to have the pain. Social issues also present. He seems to be living with friends. No family in town. Objective - Constitutional Vitals: Last Vital Signs Temp 98.0 F 06/16/16 07:55 Pulse 70 06/16/16 07:55 Resp 18 06/16/16 07:55 BP 144/71 06/16/16 07:55 Pulse Ox 100 06/16/16 07:55 Pain Intensity (0-10): 8/10 General appearance: mild distress Performance status: 3-limited selfcare - Neck Neck: supple - Respiratory Respiratory effort: Positive: normal Respiratory: bilateral: CTA - Cardiovascular Rhythm: regular Extremities: No edema - Gastrointestinal General gastrointestinal: Present: soft - Labs Lab Results: Laboratory Results - last 24 hr 06/12/16 06/16/16 14:41 07:39 WBC 7.2 RBC 2.87 L Hgb 9.1 L Hct 26.4 L MCV 92 MCH 32 MCHC 35 H RDW 16.9 H [place] % (Auto) Radio Communications Superintendent Serum Total Protein 14.4 H Albumin 4.6 Tguue-[id number] 0.6 H Mhauu-3-[place]ho[place] 1.6 H Beta Globulins 0.3 Gamma Globulins 6.8 H Abnorm Protein Band 1 6.4 H PEP Interpretation see below H
[2016-06-16 09:58] LABS: Anisocytosis 1+; Basophils % (Manual) 0 % (0.0-1.8); Blastocytes % (Manual) 0 %; Eosinophils % (Manual) 0 % (0.0-4.3)
[2016-06-16 09:59] LABS: Hypochromasia 1+; Microcytosis Few; Target Cells Rare
[2016-06-16 10:00] LABS: Diff Status Complete; Platelet Estimate Appears Decreased
[2016-06-16] MEDS: LOVENOX SUB-Q SCH (10:00)
[2016-06-16 10:21] LABS: Platelet Count 87 K/mm3 (140-440)
--- NOTE | 2016-06-16 17:00 | Progress Note ---
Assessment and Plan Assessment and plan: --Possible multiple myeloma; as per protein electrophoresis Hematology oncology following, steroids therapy after biopsy --Metastatic cancer probably prostate cancer or osseous origin Continue supportive care, oncology following Possible bone marrow biopsy, follow inguinal mass biopsy --Severe anemia secondary to underlying malignant process Status post PRBC transfusion, transfuse additional PRBC Closely monitor H&H --Hyponatremia; mild improvement, gentle replacement therapy Patient has history of chronic hyponatremia --Severe malnutrition; can do to underlying malignant process Nutrition supplement and supportive care, follow dietary consult and recommendations --DVT prophylaxis; On Lovenox Follow biopsy, management per hematology oncology Plan of care Discussed with the patient as well as the nurse Rest of the workup can be done as outpatient if agreeable to hematology oncology History Interval history: Patient seen and evaluated medical records reviewed No new events noted by the nursing staff Serum electrophoresis confirms multiple myeloma, as per hematology Patient complaints of pain, awaiting biopsy Hospitalist Physical - Constitutional Vitals: Temp Pulse Resp BP Pulse Ox 98.1 F 80 20 154/77 100 06/16/16 15:45 06/16/16 15:45 06/16/16 15:45 06/16/16 15:45 06/16/16 07:55 General appearance: Present: no acute distress, cachectic, disheveled, other ( chronically looking) - EENT Eyes: Present: PERRL, EOM intact - Neck Neck: Present: supple, normal ROM - Respiratory Respiratory effort: normal Respiratory: bilateral: diminished, negative: rales, rhonchi, wheezing - Cardiovascular Rhythm: regular Heart Sounds: Present: S1 & S2 - Extremities Extremities: no ischemia, pulses intact, pulses symmetrical Peripheral Pulses: within normal limits - Abdominal General gastrointestinal: soft, non-tender, non-distended, normal bowel sounds - Integumentary Integumentary: Present: clear, warm - Psychiatric Psychiatric: appropriate mood/affect, cooperative - Neurologic Neurologic: CNII-XII intact, moves all extremities Results - Labs CBC & Chem 7: 06/16/16 07:39 06/14/16 05:57 Labs: Laboratory Last Values WBC 7.2 K/mm3 (4.5-11.0) 06/16/16 07:39 RBC 2.87 M/mm3 (3.65-5.03) L 06/16/16 07:39 Hgb 9.1 gm/dl (11.8-15.2) L 06/16/16 07:39 Hct 26.4 % (35.5-45.6) L 06/16/16 07:39 MCV 92 fl (84-94) 06/16/16 07:39 MCH 32 pg (28-32) 06/16/16 07:39 MCHC 35 % (32-34) H 06/16/16 07:39 RDW 16.9 % (13.2-15.2) H 06/16/16 07:39 Plt Count 87 K/mm3 (140-440) L 06/16/16 07:39 [place] % (Auto) Quality Assurance Analyst 06/16/16 07:39 Add Manual Diff Complete 06/16/16 07:39 Total Counted 100 06/16/16 07:39 Seg Neuts % (Manual) 61.0 % (40.0-70.0) 06/16/16 07:39 Band Neutrophils % 3.0 % 06/16/16 07:39 Lymphocytes % (Manual) 27.0 % (13.4-35.0) 06/16/16 07:39 Reactive Lymphs % (Man) 4.0 % 06/16/16 07:39 Monocytes % (Manual) 5.0 % (0.0-7.3) 06/16/16 07:39 Eosinophils % (Manual) 0 % (0.0-4.3) 06/16/16 07:39 Basophils % (Manual) 0 % (0.0-1.8) 06/16/16 07:39 Metamyelocytes % 0 % 06/16/16 07:39 Myelocytes % 0 % 06/16/16 07:39 Promyelocytes % 0 % 06/16/16 07:39 Blast Cells % 0 % 06/16/16 07:39 Nucleated RBC % Not Reportable 06/16/16 07:39 Seg Neutrophils # Man 4.4 K/mm3 (1.8-7.7) 06/16/16 07:39 Band Neutrophils # 0.2 K/mm3 06/16/16 07:39 Lymphocytes # (Manual) 1.9 K/mm3 (1.2-5.4) 06/16/16 07:39 Abs React Lymphs (Man) 0.3 K/mm3 06/16/16 07:39 Monocytes # (Manual) 0.4 K/mm3 (0.0-0.8) 06/16/16 07:39 Eosinophils # (Manual) 0.0 K/mm3 (0.0-0.4) 06/16/16 07:39 Basophils # (Manual) 0.0 K/mm3 (0.0-0.1) 06/16/16 07:39 Metamyelocytes # 0.0 K/mm3 06/16/16 07:39 Myelocytes # 0.0 K/mm3 06/16/16 07:39 Promyelocytes # 0.0 K/mm3 06/16/16 07:39 Blast Cells # 0.0 K/mm3 06/16/16 07:39 WBC Morphology Not Reportable 06/16/16 07:39 Hypersegmented Neuts Not Reportable 06/16/16 07:39 Hyposegmented Neuts Not Reportable 06/16/16 07:39 Hypogranular Neuts Not Reportable 06/16/16 07:39 Smudge Cells Not Reportable 06/16/16 07:39 Toxic Granulation Not Reportable 06/16/16 07:39 Toxic Vacuolation Not Reportable 06/16/16 07:39 Dohle Bodies Not Reportable 06/16/16 07:39 Pelger-Huet Anomaly Not Reportable 06/16/16 07:39 David Rods Not Reportable 06/16/16 07:39 Platelet Estimate Appears decreased 06/16/16 07:39 Clumped Platelets Not Reportable 06/16/16 07:39 Plt Clumps, EDTA Not Reportable 06/16/16 07:39 Large Platelets Not Reportable 06/16/16 07:39 Giant Platelets Not Reportable 06/16/16 07:39 Platelet Satelliting Not Reportable 06/16/16 07:39 Plt Morphology Comment Not Reportable 06/16/16 07:39 RBC Morphology Not Reportable 06/16/16 07:39 Dimorphic RBCs Not Reportable 06/16/16 07:39 Polychromasia Not Reportable 06/16/16 07:39 Hypochromasia 1+ 06/16/16 07:39 Poikilocytosis Not Reportable 06/16/16 07:39 Anisocytosis 1+ 06/16/16 07:39 Microcytosis Few 06/16/16 07:39 Macrocytosis Not Reportable 06/16/16 07:39 Spherocytes Not Reportable 06/16/16 07:39 Pappenheimer Bodies Not Reportable 06/16/16 07:39 Sickle Cells Not Reportable 06/16/16 07:39 Target Cells Rare 06/16/16 07:39 Tear Drop Cells Not Reportable 06/16/16 07:39 Ovalocytes Not Reportable 06/16/16 07:39 Stomatocytes Few 06/15/16 05:51 Helmet Cells Not Reportable 06/16/16 07:39 Zhou-[place] Bodies Not Reportable 06/16/16 07:39 [place] Rings Not Reportable 06/16/16 07:39 Barbi Cells Not Reportable 06/16/16 07:39 Bite Cells Not Reportable 06/16/16 07:39 Crenated Cell Not Reportable 06/16/16 07:39 Elliptocytes Not Reportable 06/16/16 07:39 Acanthocytes (Spur) Not Reportable 06/16/16 07:39 Rouleaux Not Reportable 06/16/16 07:39 Hemoglobin C Crystals Not Reportable 06/16/16 07:39 Schistocytes Not Reportable 06/16/16 07:39 Malaria parasites Not Reportable 06/16/16 07:39 Percent Retic 1.85 % (0.78-2.58) 06/12/16 14:41 Daryl Bodies Not Reportable 06/16/16 07:39 Hem Pathologist Commnt No 06/16/16 07:39 Sodium 129 mmol/L (137-145) L 06/14/16 05:57 Potassium 3.8 mmol/L (3.6-5.0) 06/14/16 05:57 Chloride 96.4 mmol/L (98-107) L 06/14/16 05:57 Carbon Dioxide 29 mmol/L (22-30) 06/14/16 05:57 Anion Gap 7 mmol/L 06/14/16 05:57 BUN 11 mg/dL (9-20) 06/14/16 05:57 Creatinine 1.0 mg/dL (0.8-1.5) 06/14/16 05:57 Estimated GFR > 60 ml/min 06/14/16 05:57 BUN/Creatinine Ratio 11.00 % 06/14/16 05:57 Glucose 88 mg/dL (75-100) 06/14/16 05:57 Uric Acid 8.6 mg/dL (3.5-7.6) H 06/12/16 08:09 Calcium 9.4 mg/dL (8.4-10.2) 06/14/16 05:57 Phosphorus 5.5 mg/dL (2.5-4.5) H 06/12/16 08:09 Magnesium 1.5 mg/dL (1.7-2.3) L 06/11/16 13:53 Ferritin 983.2 ng/mL (13.0-400.0) H 06/12/16 14:41 Total Bilirubin 1.0 mg/dL (0.1-1.2) 06/13/16 07:29 Direct Bilirubin < 0.2 mg/dL (0-0.2) 06/13/16 07:29 Indirect Bilirubin 0.8 mg/dL 06/13/16 07:29 AST 26 units/L (5-40) 06/13/16 07:29 ALT 9 units/L (7-56) 06/13/16 07:29 Alkaline Phosphatase 39 units/L (35-129) 06/13/16 07:29 Serum Total Protein 14.4 g/dL (6.1-8.1) H 06/12/16 14:41 Total Protein 13.6 g/dL (6.3-8.2) H 06/13/16 07:29 Albumin 2.7 g/dL (3.9-5) L 06/13/16 07:29 Albumin/Globulin Ratio 0.2 % 06/13/16 07:29 Prykh-4-Knkjwvjqc 0.6 g/dL (0.2-0.3) H 06/12/16 14:41 [place]-8-Vsycdtebc 1.6 g/dL (0.5-0.9) H 06/12/16 14:41 Beta Globulins 0.3 g/dL (0.2-0.5) 06/12/16 14:41 Gamma Globulins 6.8 g/dL (0.8-1.7) H 06/12/16 14:41 Abnorm Protein Band 1 6.4 g/dL (()) H 06/12/16 14:41 PEP Interpretation see below (()) H 06/12/16 14:41 Prostate Specific Ag 0.22 ng/mL (0.00-4.00) 06/12/16 14:41 Vitamin B12 2000 pg/mL (211-911) H 06/12/16 14:41 Urine Color Yellow (Yellow) 06/11/16 14:42 Urine Turbidity Clear (Clear) 06/11/16 14:42 Urine pH 7.0 (5.0-7.0) 06/11/16 14:42 Ur Specific [place] 1.008 (1.003-1.030) 06/11/16 14:42 Urine Protein <15 mg/dl mg/dL (Negative) 06/11/16 14:42 Urine Glucose (UA) Neg mg/dL (Negative) 06/11/16 14:42 Urine Ketones Neg mg/dL (Negative) 06/11/16 14:42 Urine Blood Sm (Negative) 06/11/16 14:42 Urine Nitrite Neg (Negative) 06/11/16 14:42 Urine Bilirubin Neg (Negative) 06/11/16 14:42 Urine Urobilinogen 4.0 mg/dL (<2.0) 06/11/16 14:42 Ur Leukocyte Esterase Neg (Negative) 06/11/16 14:42 Urine WBC (Auto) 4.0 /HPF (0.0-6.0) 06/11/16 14:42 Urine RBC (Auto) 6.0 /HPF (0.0-6.0) 06/11/16 14:42 U Epithel Cells (Auto) < 1.0 /HPF (0-13.0) 06/11/16 14:42 Urine Sperm 1+ /HPF (VECTOR CONTROL ASSISTANT) 06/11/16 14:42 Blood Type O POSITIVE 06/11/16 15:58 Antibody Screen Negative 06/11/16 15:58 Crossmatch See Detail 06/11/16 15:58
[2016-06-17] MEDS ORDERED: AMBIEN PO PRN (00:26)
[2016-06-17] MEDS: DILAUDID IV PRN ×5 (03:43→22:53)
[2016-06-17 07:42] LABS: Hematocrit 25.2 % (35.5-45.6); Hemoglobin 8.9 gm/dl (11.8-15.2); Mean Corpuscular HGB Conc 35 % (32-34); Mean Corpuscular Hemoglobin 32 pg (28-32); Mean Corpuscular Volume 91 fl (84-94); Red Blood Count 2.76 M/mm3 (3.65-5.03); White Blood Count 7.3 K/mm3 (4.5-11.0)
[2016-06-17 07:45] LABS: Platelet Count 84 K/mm3 (140-440)
[2016-06-17 08:56] LABS: INR 1.22 (0.87-1.13)
[2016-06-17 08:57] LABS: Partial Thromboplastin Time 30.4 Sec. (24.2-36.6)
--- NOTE | 2016-06-17 09:03 | Hem/Onc Progress Note ---
Assessment and Plan Patient to get the biopsy done today. All labs and serum protein electrophoresis suggest multiple myeloma. He does have a high M spike. Due to social issues, and pain issues, I will be starting him on dexamethasone 40 mg per day for 4 days beginning on days 1, 9 and 17 for the first 2 cycles and then 40 mg a day for 4 days beginning day 1 before the next 10 cycles every 6 weeks for 12 cycles. In the meantime if he is able to come to my office, I can set him up for Revlimid and Velcade as outpatient Subjective Date of service: 06/17/16 Interval history: Patient get his biopsy today. Continues to have the pain. Social issues also present. He seems to be living with friends. No family in town. Anxious about the disease. Objective - Constitutional Vitals: Last Vital Signs Temp 97.9 F 06/17/16 00:00 Pulse 77 06/17/16 00:00 Resp 18 06/17/16 04:13 BP 146/70 06/17/16 00:00 Pulse Ox 97 06/17/16 00:00 General appearance: mild distress Performance status: 3-limited selfcare - Neck Neck: supple - Respiratory Respiratory effort: Positive: normal - Cardiovascular Rhythm: regular Extremities: No edema - Gastrointestinal General gastrointestinal: Present: soft - Labs Lab Results: Laboratory Results - last 24 hr 06/12/16 06/14/16 06/16/16 14:41 09:18 07:39 WBC RBC Hgb Hct MCV MCH MCHC RDW Plt Count 87 L [place] % (Auto) Add Manual Diff Complete Total Counted 100 Seg Neuts % (Manual) 61.0 Band Neutrophils % 3.0 Lymphocytes % (Manual) 27.0 Reactive Lymphs % (Man) 4.0 Monocytes % (Manual) 5.0 Eosinophils % (Manual) 0 Basophils % (Manual) 0 Metamyelocytes % 0 Myelocytes % 0 Promyelocytes % 0 Blast Cells % 0 Nucleated RBC % Not Reportable Seg Neutrophils # Man 4.4 Band Neutrophils # 0.2 Lymphocytes # (Manual) 1.9 Abs React Lymphs (Man) 0.3 Monocytes # (Manual) 0.4 Eosinophils # (Manual) 0.0 Basophils # (Manual) 0.0 Metamyelocytes # 0.0 Myelocytes # 0.0 Promyelocytes # 0.0 Blast Cells # 0.0 WBC Morphology Not Reportable Hypersegmented Neuts Not Reportable Hyposegmented Neuts Not Reportable Hypogranular Neuts Not Reportable Smudge Cells Not Reportable Toxic Granulation Not Reportable Toxic Vacuolation Not Reportable Dohle Bodies Not Reportable Pelger-Huet Anomaly Not Reportable David Rods Not Reportable Platelet Estimate Appears decreased Clumped Platelets Not Reportable Plt Clumps, EDTA Not Reportable Large Platelets Not Reportable Giant Platelets Not Reportable Platelet Satelliting Not Reportable Plt Morphology Comment Not Reportable RBC Morphology Not Reportable Dimorphic RBCs Not Reportable Polychromasia Not Reportable Hypochromasia 1+ Poikilocytosis Not Reportable Anisocytosis 1+ Microcytosis Few Macrocytosis Not Reportable Spherocytes Not Reportable Pappenheimer Bodies Not Reportable Sickle Cells Not Reportable Target Cells Rare Tear Drop Cells Not Reportable Ovalocytes Not Reportable Helmet Cells Not Reportable Zhou-[place] Bodies Not Reportable [place] Rings Not Reportable Barbi Cells Not Reportable Bite Cells Not Reportable Crenated Cell Not Reportable Elliptocytes Not Reportable Acanthocytes (Spur) Not Reportable Rouleaux Not Reportable Hemoglobin C Crystals Not Reportable Schistocytes Not Reportable Malaria parasites Not Reportable Daryl Bodies Not Reportable Hem Pathologist Commnt No PT INR APTT RBC Folic Acid 656 Immunofix Electrophor see below H 06/17/16 06/17/16 06:38 08:35 WBC 7.3 RBC 2.76 L Hgb 8.9 L Hct 25.2 L MCV 91 MCH 32 MCHC 35 H RDW 17.0 H Plt Count 84 L [place] % (Auto) Foreclosure Home Inspector Add Manual Diff Total Counted Seg Neuts % (Manual) Band Neutrophils % Lymphocytes % (Manual) Reactive Lymphs % (Man) Monocytes % (Manual) Eosinophils % (Manual) Basophils % (Manual) Metamyelocytes % Myelocytes % Promyelocytes % Blast Cells % Nucleated RBC % Seg Neutrophils # Man Band Neutrophils # Lymphocytes # (Manual) Abs React Lymphs (Man) Monocytes # (Manual) Eosinophils # (Manual) Basophils # (Manual) Metamyelocytes # Myelocytes # Promyelocytes # Blast Cells # WBC Morphology Hypersegmented Neuts Hyposegmented Neuts Hypogranular Neuts Smudge Cells Toxic Granulation Toxic Vacuolation Dohle Bodies Pelger-Huet Anomaly David Rods Platelet Estimate Clumped Platelets Plt Clumps, EDTA Large Platelets Giant Platelets Platelet Satelliting Plt Morphology Comment RBC Morphology Dimorphic RBCs Polychromasia Hypochromasia Poikilocytosis Anisocytosis Microcytosis Macrocytosis Spherocytes Pappenheimer Bodies Sickle Cells Target Cells Tear Drop Cells Ovalocytes Helmet Cells [place] Bodies [place] Rings [place] Cells Bite Cells Crenated Cell Elliptocytes Acanthocytes (Spur) Rouleaux Hemoglobin C Crystals Schistocytes Malaria parasites Daryl Bodies Hem Pathologist Commnt PT 15.3 H INR 1.22 H APTT 30.4 RBC Folic Acid Immunofix Electrophor
[2016-06-17 09:34] LABS: Anisocytosis 1+; Basophils % (Manual) 0 % (0.0-1.8); Blastocytes % (Manual) 0 %; Hypochromasia 1+; Microcytosis Few
[2016-06-17 09:35] LABS: Diff Status Complete; Platelet Estimate Appears Decreased; Target Cells Few
[2016-06-17] MEDS ORDERED: VERSED IV ONE ×3 (10:07→10:38)
[2016-06-17] MEDS ORDERED: SUBLIMAZE ONE ×2 (10:07→10:26)
[2016-06-17] MEDS ORDERED: SUBLIMAZE IV ONE ×2 (10:20→10:38)
[2016-06-17] MEDS ORDERED: VERSED ONE (10:26)
[2016-06-17 10:32] LABS: Blood Urea Nitrogen 15 mg/dL (9-20); Calcium 10.6 mg/dL (8.4-10.2); Carbon Dioxide 35 mmol/L (22-30); Glucose 90 mg/dL (75-100); Magnesium 1.8 mg/dL (1.7-2.3)
--- NOTE | 2016-06-17 11:48 | Cat Scan Report ---
CT-GUIDED BONE MARROW BIOPSY. HISTORY: Anemia and multiple lytic bone lesions. PROCEDURE: The patient was placed in the prone position. The skin surface overlying the right iliac bone was prepped and draped using sterile technique. Local anesthetic was injected into the skin. Using CT guidance, a 13-gauge biopsy needle was advanced into the marrow space of the posterior right iliac bone. Initial attempts to aspirate yielded less than 1/2 cc of sanguinous fluid which thrombosed before transferring to the pathology slides. Additional attempts were unsuccessful in obtaining adequate marrow. A core biopsy was successful. Intravenous conscious sedation was used. Independent cardiorespiratory monitoring was performed by the outpatient procedure nurse for 20 minutes, supervised by me. The patient tolerated the procedure well clinically. The patient was sent to the floor as an inpatient in satisfactory condition at the termination of this procedure.
[2016-06-17 12:20] LABS: Anion Gap 4 mmol/L; Chloride 95.1 mmol/L (98-107); Sodium 130 mmol/L (137-145)
[2016-06-17] MEDS: LOVENOX SUB-Q SCH (12:33)
--- NOTE | 2016-06-17 15:04 | Procedure Note ---
Date of procedure: 06/17/16 Pre-op diagnosis: Multiple bone lesions, anemia Post-op diagnosis: same Procedure: Bone marrow bx. Anesthesia: local Surgeon: ELBERT YARBROUGH Estimated blood loss: none Specimen disposition: to lab Condition: stable Disposition: floor
--- NOTE | 2016-06-17 19:18 | Progress Note ---
Hospitalist Physical - Constitutional Vitals: Temp Pulse Resp BP Pulse Ox 98.2 F 101 H 20 140/84 98 06/17/16 15:30 06/17/16 15:30 06/17/16 15:30 06/17/16 15:30 06/17/16 17:23 General appearance: Present: no acute distress, cachectic, disheveled, other ( chronically looking) Results - Labs CBC & Chem 7: 06/17/16 06:38 06/17/16 06:38 Labs: Laboratory Last Values WBC 7.3 K/mm3 (4.5-11.0) 06/17/16 06:38 RBC 2.76 M/mm3 (3.65-5.03) L 06/17/16 06:38 Hgb 8.9 gm/dl (11.8-15.2) L 06/17/16 06:38 Hct 25.2 % (35.5-45.6) L 06/17/16 06:38 MCV 91 fl (84-94) 06/17/16 06:38 MCH 32 pg (28-32) 06/17/16 06:38 MCHC 35 % (32-34) H 06/17/16 06:38 RDW 17.0 % (13.2-15.2) H 06/17/16 06:38 Plt Count 84 K/mm3 (140-440) L 06/17/16 06:38 [place] % (Auto) Senior Chemical Process Engineer 06/17/16 06:38 Add Manual Diff Complete 06/17/16 06:38 Total Counted 100 06/17/16 06:38 Seg Neuts % (Manual) 45.0 % (40.0-70.0) 06/17/16 06:38 Band Neutrophils % 3.0 % 06/17/16 06:38 Lymphocytes % (Manual) 41.0 % (13.4-35.0) H 06/17/16 06:38 Reactive Lymphs % (Man) 0 % 06/17/16 06:38 Monocytes % (Manual) 9.0 % (0.0-7.3) H 06/17/16 06:38 Eosinophils % (Manual) 1.0 % (0.0-4.3) 06/17/16 06:38 Basophils % (Manual) 0 % (0.0-1.8) 06/17/16 06:38 Metamyelocytes % 0 % 06/17/16 06:38 Myelocytes % 1.0 % 06/17/16 06:38 Promyelocytes % 0 % 06/17/16 06:38 Blast Cells % 0 % 06/17/16 06:38 Nucleated RBC % Not Reportable 06/17/16 06:38 Seg Neutrophils # Man 3.3 K/mm3 (1.8-7.7) 06/17/16 06:38 Band Neutrophils # 0.2 K/mm3 06/17/16 06:38 Lymphocytes # (Manual) 3.0 K/mm3 (1.2-5.4) 06/17/16 06:38 Abs React Lymphs (Man) 0.0 K/mm3 06/17/16 06:38 Monocytes # (Manual) 0.7 K/mm3 (0.0-0.8) 06/17/16 06:38 Eosinophils # (Manual) 0.1 K/mm3 (0.0-0.4) 06/17/16 06:38 Basophils # (Manual) 0.0 K/mm3 (0.0-0.1) 06/17/16 06:38 Metamyelocytes # 0.0 K/mm3 06/17/16 06:38 Myelocytes # 0.1 K/mm3 06/17/16 06:38 Promyelocytes # 0.0 K/mm3 06/17/16 06:38 Blast Cells # 0.0 K/mm3 06/17/16 06:38 WBC Morphology Not Reportable 06/17/16 06:38 Hypersegmented Neuts Not Reportable 06/17/16 06:38 Hyposegmented Neuts Not Reportable 06/17/16 06:38 Hypogranular Neuts Not Reportable 06/17/16 06:38 Smudge Cells Not Reportable 06/17/16 06:38 Toxic Granulation Not Reportable 06/17/16 06:38 Toxic Vacuolation Not Reportable 06/17/16 06:38 Dohle Bodies Not Reportable 06/17/16 06:38 Pelger-Huet Anomaly Not Reportable 06/17/16 06:38 David Rods Not Reportable 06/17/16 06:38 Platelet Estimate Appears decreased 06/17/16 06:38 Clumped Platelets Not Reportable 06/17/16 06:38 Plt Clumps, EDTA Not Reportable 06/17/16 06:38 Large Platelets Not Reportable 06/17/16 06:38 Giant Platelets Not Reportable 06/17/16 06:38 Platelet Satelliting Not Reportable 06/17/16 06:38 Plt Morphology Comment Not Reportable 06/17/16 06:38 RBC Morphology Not Reportable 06/17/16 06:38 Dimorphic RBCs Not Reportable 06/17/16 06:38 Polychromasia Not Reportable 06/17/16 06:38 Hypochromasia 1+ 06/17/16 06:38 Poikilocytosis Not Reportable 06/17/16 06:38 Anisocytosis 1+ 06/17/16 06:38 Microcytosis Few 06/17/16 06:38 Macrocytosis Not Reportable 06/17/16 06:38 Spherocytes Not Reportable 06/17/16 06:38 Pappenheimer Bodies Not Reportable 06/17/16 06:38 Sickle Cells Not Reportable 06/17/16 06:38 Target Cells Few 06/17/16 06:38 Tear Drop Cells Not Reportable 06/17/16 06:38 Ovalocytes Not Reportable 06/17/16 06:38 Stomatocytes Few 06/15/16 05:51 Helmet Cells Not Reportable 06/17/16 06:38 Zhou-[place] Bodies Not Reportable 06/17/16 06:38 [place] Rings Not Reportable 06/17/16 06:38 Barbi Cells Not Reportable 06/17/16 06:38 Bite Cells Not Reportable 06/17/16 06:38 Crenated Cell Not Reportable 06/17/16 06:38 Elliptocytes Not Reportable 06/17/16 06:38 Acanthocytes (Spur) Not Reportable 06/17/16 06:38 Rouleaux Not Reportable 06/17/16 06:38 Hemoglobin C Crystals Not Reportable 06/17/16 06:38 Schistocytes Not Reportable 06/17/16 06:38 Malaria parasites Not Reportable 06/17/16 06:38 Percent Retic 1.85 % (0.78-2.58) 06/12/16 14:41 Daryl Bodies Not Reportable 06/17/16 06:38 Hem Pathologist Commnt No 06/17/16 06:38 PT 15.3 Sec. (12.2-14.9) H 06/17/16 08:35 INR 1.22 (0.87-1.13) H 06/17/16 08:35 APTT 30.4 Sec. (24.2-36.6) 06/17/16 08:35 Sodium 130 mmol/L (137-145) L 06/17/16 06:38 Potassium 4.0 mmol/L (3.6-5.0) 06/17/16 06:38 Chloride 95.1 mmol/L (98-107) L 06/17/16 06:38 Carbon Dioxide 35 mmol/L (22-30) H 06/17/16 06:38 Anion Gap 4 mmol/L 06/17/16 06:38 BUN 15 mg/dL (9-20) 06/17/16 06:38 Creatinine 1.0 mg/dL (0.8-1.5) 06/17/16 06:38 Estimated GFR > 60 ml/min 06/17/16 06:38 BUN/Creatinine Ratio 15.00 % 06/17/16 06:38 Glucose 90 mg/dL (75-100) 06/17/16 06:38 Uric Acid 8.6 mg/dL (3.5-7.6) H 06/12/16 08:09 Calcium 10.6 mg/dL (8.4-10.2) H 06/17/16 06:38 Phosphorus 5.5 mg/dL (2.5-4.5) H 06/12/16 08:09 Magnesium 1.8 mg/dL (1.7-2.3) 06/17/16 06:38 Ferritin 983.2 ng/mL (13.0-400.0) H 06/12/16 14:41 Total Bilirubin 1.0 mg/dL (0.1-1.2) 06/13/16 07:29 Direct Bilirubin < 0.2 mg/dL (0-0.2) 06/13/16 07:29 Indirect Bilirubin 0.8 mg/dL 06/13/16 07:29 AST 26 units/L (5-40) 06/13/16 07:29 ALT 9 units/L (7-56) 06/13/16 07:29 Alkaline Phosphatase 39 units/L (35-129) 06/13/16 07:29 Serum Total Protein 14.4 g/dL (6.1-8.1) H 06/12/16 14:41 Total Protein 13.6 g/dL (6.3-8.2) H 06/13/16 07:29 Albumin 2.7 g/dL (3.9-5) L 06/13/16 07:29 Albumin/Globulin Ratio 0.2 % 06/13/16 07:29 Xpsyo-3-Jayuyfzuz 0.6 g/dL (0.2-0.3) H 06/12/16 14:41 Sonyf-5-Swsqvyrkq 1.6 g/dL (0.5-0.9) H 06/12/16 14:41 Beta Globulins 0.3 g/dL (0.2-0.5) 06/12/16 14:41 Gamma Globulins 6.8 g/dL (0.8-1.7) H 06/12/16 14:41 Abnorm Protein Band 1 6.4 g/dL (()) H 06/12/16 14:41 PEP Interpretation see below (()) H 06/12/16 14:41 Prostate Specific Ag 0.22 ng/mL (0.00-4.00) 06/12/16 14:41 Vitamin B12 2000 pg/mL (211-911) H 06/12/16 14:41 RBC Folic Acid 656 ng/mL (>280) 06/12/16 14:41 Urine Color Yellow (Yellow) 06/11/16 14:42 Urine Turbidity Clear (Clear) 06/11/16 14:42 Urine pH 7.0 (5.0-7.0) 06/11/16 14:42 Ur Specific [place] 1.008 (1.003-1.030) 06/11/16 14:42 Urine Protein <15 mg/dl mg/dL (Negative) 06/11/16 14:42 Urine Glucose (UA) Neg mg/dL (Negative) 06/11/16 14:42 Urine Ketones Neg mg/dL (Negative) 06/11/16 14:42 Urine Blood Sm (Negative) 06/11/16 14:42 Urine Nitrite Neg (Negative) 06/11/16 14:42 Urine Bilirubin Neg (Negative) 06/11/16 14:42 Urine Urobilinogen 4.0 mg/dL (<2.0) 06/11/16 14:42 Ur Leukocyte Esterase Neg (Negative) 06/11/16 14:42 Urine WBC (Auto) 4.0 /HPF (0.0-6.0) 06/11/16 14:42 Urine RBC (Auto) 6.0 /HPF (0.0-6.0) 06/11/16 14:42 U Epithel Cells (Auto) < 1.0 /HPF (0-13.0) 06/11/16 14:42 Urine Sperm 1+ /HPF (GRINDER SETUP OPERATOR) 06/11/16 14:42 Immunofix Electrophor see below (()) H 06/14/16 09:18 Blood Type O POSITIVE 06/11/16 15:58 Antibody Screen Negative 06/11/16 15:58 Crossmatch See Detail 06/11/16 15:58
[2016-06-18] MEDS: DILAUDID IV PRN ×3 (03:15→13:26)
[2016-06-18] MEDS ORDERED: DECADRON PO SCH ×2 (07:00)
[2016-06-18 07:48] LABS: Hematocrit 24.3 % (35.5-45.6); Hemoglobin 8.4 gm/dl (11.8-15.2); Mean Corpuscular HGB Conc 34 % (32-34); Mean Corpuscular Hemoglobin 32 pg (28-32); Mean Corpuscular Volume 92 fl (84-94); Red Blood Count 2.65 M/mm3 (3.65-5.03); Red Cell Distribution Width 17.1 % (13.2-15.2); White Blood Count 6.3 K/mm3 (4.5-11.0)
[2016-06-18 07:50] LABS: Platelet Count 72 K/mm3 (140-440)
[2016-06-18 08:05] LABS: BUN/Creatinine Ratio 18.18; Blood Urea Nitrogen 20 mg/dL (9-20); Calcium 9.8 mg/dL (8.4-10.2); Carbon Dioxide 28 mmol/L (22-30); Chloride 96.8 mmol/L (98-107); Sodium 130 mmol/L (137-145)
[2016-06-18 08:08] LABS: Anion Gap 9 mmol/L
--- NOTE | 2016-06-18 08:33 | Hem/Onc Progress Note ---
Assessment and Plan All labs and serum protein electrophoresis suggest multiple myeloma. He does have a high M spike. Due to social issues, and pain issues, I will start him on dexamethasone 40 mg per day for 4 days beginning on days 1, 9 and 17 for the first 2 cycles and then 40 mg a day for 4 days beginning day 1 before the next 10 cycles every 6 weeks for 12 cycles. In the meantime if he is able to come to my office, I can set him up for Revlimid and Velcade as outpatient. PT eval ordered. follow labs and transfuse if needed FISH for myeloma will be ordered thru my office Subjective Date of service: 06/18/16 Interval history: s/p bmbx. pain present. wants PT to recondition Objective - Constitutional Vitals: Last Vital Signs Temp 98.0 F 06/18/16 07:47 Pulse 98 H 06/18/16 07:47 Resp 18 06/18/16 07:47 BP 168/90 06/18/16 07:47 Pulse Ox 100 06/18/16 07:47 Pain Intensity (0-10): 5/10 General appearance: mild distress Performance status: 3-limited selfcare - Neck Neck: supple - Respiratory Respiratory effort: Positive: normal Respiratory: bilateral: CTA - Cardiovascular Rhythm: regular Extremities: No edema - Gastrointestinal General gastrointestinal: Present: soft - Labs Lab Results: Laboratory Results - last 24 hr 06/17/16 06/17/16 06/17/16 06:38 06:38 08:35 WBC RBC Hgb Hct MCV MCH MCHC RDW Plt Count [place] % (Auto) Add Manual Diff Complete Total Counted 100 Seg Neuts % (Manual) 45.0 Band Neutrophils % 3.0 Lymphocytes % (Manual) 41.0 H Reactive Lymphs % (Man) 0 Monocytes % (Manual) 9.0 H Eosinophils % (Manual) 1.0 Basophils % (Manual) 0 Metamyelocytes % 0 Myelocytes % 1.0 Promyelocytes % 0 Blast Cells % 0 Nucleated RBC % Not Reportable Seg Neutrophils # Man 3.3 Band Neutrophils # 0.2 Lymphocytes # (Manual) 3.0 Abs React Lymphs (Man) 0.0 Monocytes # (Manual) 0.7 Eosinophils # (Manual) 0.1 Basophils # (Manual) 0.0 Metamyelocytes # 0.0 Myelocytes # 0.1 Promyelocytes # 0.0 Blast Cells # 0.0 WBC Morphology Not Reportable Hypersegmented Neuts Not Reportable Hyposegmented Neuts Not Reportable Hypogranular Neuts Not Reportable Smudge Cells Not Reportable Toxic Granulation Not Reportable Toxic Vacuolation Not Reportable Dohle Bodies Not Reportable Pelger-Huet Anomaly Not Reportable David Rods Not Reportable Platelet Estimate Appears decreased Clumped Platelets Not Reportable Plt Clumps, EDTA Not Reportable Large Platelets Not Reportable Giant Platelets Not Reportable Platelet Satelliting Not Reportable Plt Morphology Comment Not Reportable RBC Morphology Not Reportable Dimorphic RBCs Not Reportable Polychromasia Not Reportable Hypochromasia 1+ Poikilocytosis Not Reportable Anisocytosis 1+ Microcytosis Few Macrocytosis Not Reportable Spherocytes Not Reportable Pappenheimer Bodies Not Reportable Sickle Cells Not Reportable Target Cells Few Tear Drop Cells Not Reportable Ovalocytes Not Reportable Helmet Cells Not Reportable [place] Bodies Not Reportable Leola Rings Not Reportable Barbi Cells Not Reportable Bite Cells Not Reportable Crenated Cell Not Reportable Elliptocytes Not Reportable Acanthocytes (Spur) Not Reportable Rouleaux Not Reportable Hemoglobin C Crystals Not Reportable Schistocytes Not Reportable Malaria parasites Not Reportable Daryl Bodies Not Reportable Hem Pathologist Commnt No PT 15.3 H INR 1.22 H APTT 30.4 Sodium 130 L Potassium 4.0 Chloride 95.1 L Carbon Dioxide 35 H Anion Gap 4 BUN 15 Creatinine 1.0 Estimated GFR > 60 BUN/Creatinine Ratio 15.00 Glucose 90 Calcium 10.6 H Magnesium 1.8 06/18/16 06/18/16 07:04 07:04 WBC 6.3 RBC 2.65 L Hgb 8.4 L Hct 24.3 L MCV 92 MCH 32 MCHC 34 RDW 17.1 H Plt Count 72 L [place] % (Auto) Cosmetology Professor Add Manual Diff Total Counted Seg Neuts % (Manual) Band Neutrophils % Lymphocytes % (Manual) Reactive Lymphs % (Man) Monocytes % (Manual) Eosinophils % (Manual) Basophils % (Manual) Metamyelocytes % Myelocytes % Promyelocytes % Blast Cells % Nucleated RBC % Seg Neutrophils # Man Band Neutrophils # Lymphocytes # (Manual) Abs React Lymphs (Man) Monocytes # (Manual) Eosinophils # (Manual) Basophils # (Manual) Metamyelocytes # Myelocytes # Promyelocytes # Blast Cells # WBC Morphology Hypersegmented Neuts Hyposegmented Neuts Hypogranular Neuts Smudge Cells Toxic Granulation Toxic Vacuolation Dohle Bodies Pelger-Huet Anomaly David Rods Platelet Estimate Clumped Platelets Plt Clumps, EDTA Large Platelets Giant Platelets Platelet Satelliting Plt Morphology Comment RBC Morphology Dimorphic RBCs Polychromasia Hypochromasia Poikilocytosis Anisocytosis Microcytosis Macrocytosis Spherocytes Pappenheimer Bodies Sickle Cells Target Cells Tear Drop Cells Ovalocytes Helmet Cells Zhou-[place] Bodies Leola Rings Barbi Cells Bite Cells Crenated Cell Elliptocytes Acanthocytes (Spur) Rouleaux Hemoglobin C Crystals Schistocytes Malaria parasites Daryl Bodies Hem Pathologist Commnt PT INR APTT Sodium 130 L Potassium 4.0 Chloride 96.8 L Carbon Dioxide 28 D Anion Gap 9 BUN 20 Creatinine 1.1 Estimated GFR > 60 BUN/Creatinine Ratio 18.18 Glucose Calcium 9.8 Magnesium
[2016-06-18 08:38] LABS: Alanine Aminotransferase 8 units/L (7-56); Albumin 2.7 g/dL (3.9-5); Alkaline Phosphatase 44 units/L (35-129); Glucose 91 mg/dL (75-100)
[2016-06-18 08:49] LABS: Albumin/Globulin Ratio 0.2 %
[2016-06-18 09:28] LABS: Basophils % (Manual) 0 % (0.0-1.8); Blastocytes % (Manual) 0 %
[2016-06-18 09:29] LABS: Anisocytosis 1+; Diff Status Complete; Hypochromasia 1+; Platelet Estimate Appears Decreased; Poikilocytosis 1+; Target Cells Few
[2016-06-18] MEDS ORDERED: PEPCID PO SCH (10:00)
[2016-06-18] MEDS: LOVENOX SUB-Q SCH (10:19)
--- NOTE | 2016-06-18 11:58 | Discharge Summary ---
Providers - Providers Date of Admission: 06/11/16 20:59 Date of discharge: 06/18/16 Attending physician: BARNEY MARMOLEJO 06/13/16 09:53 Consult to Dietitian/Nutrition [CONS] Routine Physician Instructions: Reason For Exam: Reason for Consult: Malnutrition 06/18/16 08:26 Physical Therapy Evaluation and Treat [CONS] Routine Comment: Reason For Exam: weakness Primary care physician: PHARMACY RESIDENT Hospitalization Condition: Stable Disposition: DISCHARGED TO HOME OR SELFCARE Time spent for discharge: 35 min Exam - Constitutional Vitals: Temp Pulse Resp BP Pulse Ox 98.0 F 98 H 18 168/90 100 06/18/16 07:47 06/18/16 07:47 06/18/16 07:47 06/18/16 07:47 06/18/16 07:47 Plan Activity: advance as tolerated, fall precautions Diet: low cholesterol, low salt Follow up with: PRIMARY CAREMD [Primary Care Provider] - 7 Days PATEL ONOFRE MD [Staff Physician] - 3 Days Prescriptions: Acetaminophen [Acetaminophen TAB] 650 mg PO Q4H PRN #90 tablet PRN Reason: Pain MILD(1-3)/Fever >100.5/THOMAS Bisacodyl [Dulcolax suppos] 10 mg NM QDAY PRN #30 supp.rect PRN Reason: Constipation unrelieved by MOM Famotidine [Pepcid] 20 mg PO QDAY #30 tablet Oxycodone HCl/Acetaminophen [Percocet 10/325 mg] 1 each PO Q6HR PRN #30 tablet PRN Reason: Pain
[2016-06-18] MEDS: D5NS 1,000 ML IV SCH (16:22)
[2016-06-18 16:36] VITALS: BP 132/72
== END 2016-06-18 18:43 | disposition home or self-care (01) | DRG 840 ==
LOC: ED 08:41 → 3A 20:59
PROVIDERS: ADMIT Internal Medicine; ATTEND Internal Medicine
PROC: 30233N1 Transfusion of Nonautologous Red Blood Cells into Peripheral Vein, Percutaneous Approach (ICD-10-PCS; principal; 2016-06-14)
PROC: 07DR3ZX Extraction of Iliac Bone Marrow, Percutaneous Approach, Diagnostic (ICD-10-PCS; 2016-06-17)
DX: C90.00 Multiple myeloma not having achieved remission (principal); E43 Unspecified severe protein-calorie malnutrition; E87.1 Hypo-osmolality and hyponatremia; Z68.1 Body mass index [BMI] 19.9 or less, adult; C79.82 Secondary malignant neoplasm of genital organs; D64.9 Anemia, unspecified; F17.200 Nicotine dependence, unspecified, uncomplicated; Z82.49 Family history of ischemic heart disease and other diseases of the circulatory system
CPT/HCPCS: 36415; 38221; 71020; 74176; 77012; 77074; 80048; 80053; 80074; 81001; 82607; 82728; 82747; 83735; 84100; 84153; 84165; 84550; 85007; 85025; 85027; 85045; 85097; 85610; 85730; 86334; 86850; 86900; 86901; 86920; 88161; 88305; 88311; 88313; 96361; 96374; 96376; J1170; J1642; J1650; J2250; J2270; J3010; J7040; J7042; J8540; P9016